=== PATIENT | male | born 1960 | race Caucasian/White ===

== ENCOUNTER → 2020-07-05 | Outpatient (CLI) | payer OTHER ==
--- NOTE | 2020-07-05 15:56 | XR ---
EXAMINATION TYPE: XR femur LT DATE OF EXAM: 07/05/2020 COMPARISON: None HISTORY: Left hip pain TECHNIQUE: 2 view left femur FINDINGS: There is destruction of the femoral head. Some acetabular erosion is present. No acute fractures identified. Knee joint space as visualized is unremarkable. No joint effusion is e vident IMPRESSION: 1. Destruction and flattening of the superior left femoral head.
--- NOTE | 2020-07-05 15:57 | XR ---
EXAMINATION TYPE: XR Hip Complete LT DATE OF EXAM: 07/05/2020 COMPARISON: Left femur HISTORY: Difficulty walking, left hip pain TECHNIQUE: 2 view left hip FINDINGS: No acute fractures are evident. There is deformity and loss of the superior left femoral head. There is loss of joint space with scle rosis along the acetabulum. Some acetabular reconstruction is evident. Acetabular spurring is present . IMPRESSION: 1. Advanced degenerative changes left hip
--- NOTE | 2020-07-05 17:10 | XR ---
EXAMINATION TYPE: XR lumbosacral spine min 4V DATE OF EXAM: 07/05/2020 COMPARISON: None HISTORY: Left hip pain TECHNIQUE: 5 view lumbar spine FINDINGS: Scoliosis is present with the convexity to the right. This is centered at approximately L1. There 5 lumbar-type vertebral bodies. The pedicles as visualized appear intact. Spondylosis is presen t. T12 ribs are rudimentary. Facet degenerative changes are present. No spondylolytic defects are marek dent. Vacuum disc phenomenon is present L2-3. There is narrowing of the L3-4 and L1-2 disc heights. T here is a grade 1 spondylolisthesis of L4 anterior on L5. IMPRESSION: 1. 1 spondylolisthesis of L4 anterior to L5. 2. Degenerative disc changes L3-4 and L1-2 3. Facet degenerative changes. 4. Scoliosis
== END | disposition home or self-care (01) ==
LOC: RADXRMAIN 07:35
PROVIDERS: ATTEND Family Medicine
DX: M43.16 Spondylolisthesis, lumbar region (principal); M41.9 Scoliosis, unspecified; M47.896 Other spondylosis, lumbar region; M16.12 Unilateral primary osteoarthritis, left hip; M87.852 Other osteonecrosis, left femur
CPT/HCPCS: 72110; 73502

== ENCOUNTER → 2020-09-16 | Outpatient (CLI) | payer OTHER | END | disposition home or self-care (01) | LOC: LABWHC1 13:20 | PROVIDERS: ATTEND Orthopaedic Surgery | DX: Z01.818 Encounter for other preprocedural examination (principal); M16.12 Unilateral primary osteoarthritis, left hip; Z01.812 Encounter for preprocedural laboratory examination | CPT/HCPCS: 87070 ==

== ENCOUNTER 2020-09-24 06:44 | Day surgery (SDC) | payer OTHER ==
[2020-09-20 10:01] VITALS: BMI 33.9
--- NOTE | 2020-09-23 11:11 | HP ---
HISTORY AND PHYSICAL CHIEF COMPLAINT: Left hip pain. HISTORY OF PRESENT ILLNESS: The patient is a 60-year-old, unemployed male who presents with progressive left hip pain for the past 2 years. It has worsened recently. He notes groin and thigh pain, worse with weightbearing activities. He notes he is using a cane. It has progressed to the point where he is having difficult time getting around. He has tried multiple medications for this. PAST MEDICAL HISTORY: Significant for arthritis. PAST SURGICAL HISTORY: Significant for previous shoulder arthroscopy, tonsillectomy, and ear surgery. CURRENT MEDICATIONS: None. He has allergies to AMOXICILLIN. FAMILY HISTORY: Significant for cancer. SOCIAL HISTORY: Negative for current tobacco or alcohol use. 16 POINT REVIEW OF SYSTEMS: Otherwise reviewed and is noncontributory. PHYSICAL EXAMINATION: On examination, the patient is approximately 6 foot tall, 245 pounds of endomorphic habitus. HEENT: Exam is nonfocal. NECK: Supple. Passive motion of left hip, flexion 55 degrees, external rotation with hip flex 60 degrees, internal rotation -10 degrees with pain. He has 2 cm of shortening of the left lower extremity compared to the right. He does have an antalgic gait pattern. His distal neurovascular appears intact in the left lower extremity. AP and lateral views of the left hip obtained in the office show severe osteoarthrosis with [id number] changes. There is flattening and deformity of the femoral head. IMPRESSION: 1. Left hip severe osteoarthrosis. 2. 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 RECOMMENDATION: I talked to the patient at length regarding his condition and treatment options. At this point, he is quite limited because of pain related to his osteoarthrosis despite conservative measures with medications and activity modifications and use of a cane. After thorough discussion, he opts to proceed with surgery. We will plan to proceed with left total hip arthroplasty utilizing a direct anterior approach. Risks and benefits were discussed at length in layman's terms. We will institute DVT prophylaxis postoperatively. MMODL / IJN: [id number] /
[~2020-09-24 06:44] MED LIST: ACETAMINOPHEN TAB 500 MG TAB PO PRN; CLINDAMYCIN 900 MG in DEXTROSE 5% IN WATER 50 ML IVPB PRN; DEXAMETHASONE SOD PHOSPHATE 4 MG/ML 1 ML VIAL IV ONE; HYDROmorphone 0.5 MG/0.5 ML SYRINGE IVP PRN; LIDOCAINE 1% (10MG/ML) FOR IV START INTRADERMA PRN; MELOXICAM 7.5 MG TAB PO PRN; MIDAZOLAM 2 MG/2 ML VIAL IV PRN; ONDANSETRON 4 MG/2 ML VIAL IVP ONE; TRANEXAMIC ACID 1,000 MG in SODIUM CHLORIDE 0.9% 100 ML IVPB PRN
[2020-09-24] MEDS: LACTATED RINGERS 1,000 ML IV SCH (07:21)
[2020-09-24] MEDS ORDERED: MIDAZOLAM 2 MG/2 ML VIAL ONE (07:55)
[2020-09-24] MEDS ORDERED: HEPARIN SODIUM,PORCINE 10,000 UNIT/ML 1 ML VIAL ONE (07:55)
[2020-09-24] MEDS ORDERED: SODIUM CHLORIDE 0.9% IRRIG 1,000 ML BTL IRRIGATION ONE (07:55)
[2020-09-24] MEDS ORDERED: fentaNYL (PF) 50 MCG/ML 2 ML AMP ONE (07:55)
[2020-09-24] MEDS ORDERED: ePHEDrine SULFATE/0.9% NACL/PF 50 MG/5 ML SYRINGE IV ONE (07:55)
[2020-09-24] MEDS ORDERED: WATER FOR INJECTION, STERILE 10 ML VIAL IV ONE (07:55)
[2020-09-24] MEDS ORDERED: SODIUM CHLORIDE 0.9% 100 ML BAG ONE (07:55)
[2020-09-24] MEDS ORDERED: TRANEXAMIC ACID 1,000 MG/10 ML VIAL ONE (07:55)
[2020-09-24] MEDS ORDERED: PROPOFOL 10 MG/ML 20 ML VIAL IV ONE (07:55)
[2020-09-24] MEDS ORDERED: LACTATED RINGERS 1,000 ML IV ONE (10:15)
[2020-09-24] MEDS ORDERED: NALOXONE 0.4 MG/ML 1 ML VIAL IV PRN (10:25)
[2020-09-24] MEDS ORDERED: ONDANSETRON 4 MG/2 ML VIAL IVP PRN (10:25)
[2020-09-24] MEDS ORDERED: traMADol 50 MG TAB PO PRN (10:25)
[2020-09-24] MEDS ORDERED: HYDROmorphone 1 MG/ML 1 ML SYRINGE IVP PRN (10:25)
[2020-09-24] MEDS ORDERED: HYDROmorphone 0.5 MG/0.5 ML SYRINGE IVP PRN (10:25)
[2020-09-24] MEDS ORDERED: MAGNESIUM HYDROXIDE 2,400 MG/10 ML CUP PO PRN (10:25)
[2020-09-24] MEDS ORDERED: HYDROcodone/APAP 7.5-325MG 1 EACH TAB PO PRN (10:27)
--- NOTE | 2020-09-24 10:42 | FL ---
Fluoroscopy INDICATION: Pain FINDINGS: Fluoroscopy time: 32 seconds. Images obtained: 1. IMPRESSIONS: 1. Documentation of fluoroscopy.
--- NOTE | 2020-09-24 10:53 | P.OP ---
Date of Procedure: 09/24/20 Preoperative Diagnosis: Left hip severe osteoarthrosis Postoperative Diagnosis: Same Procedure(s) Performed: Left total hip arthroplastyanterior approachpress-fit Implants: Depuy Corail size 12 press-fit collared standard femoral stem, 36 mm +1.5 cobalt chrome femoral head, 58 mm [place] acetabular shell with neutral polyethylene liner. Anesthesia: spinal Surgeon: Luis Adam Schedule Manager #1: Alexis Lund Estimated Blood Loss (ml): 250 Pathology: other (Femoral head) Condition: stable Disposition: PACU Indications for Procedure: The patient's a 60-year-old male who presents with progressive left hip pain secondary to osteoarthrosis despite conservative measures. A discussion of the risks and benefits of operative intervention versus continued conservative measures was made with patient. He opted to proceed with surgery. Operative risks to include infection, neurovascular injury, development of blood clots, possible fracture, possible leg length discrepancy, possible instability and need for subsequent procedures was discussed. Informed consent was obtained. Operative Findings: As below Description of Procedure: The patient was brought to the operating room, and after induction of spinal anesthesia was placed supine on the Jodi table. Positioning was checked with fluoroscopy. The left hip was then prepped and draped in a normal fashion. A 12 cm incision was then made starting 2 fingerbreadths distal and 3 finger breaths posterior to the ASIS in line with the proximal femur. The skin was incised sharply. Subcutaneous tissues were divided sharply. Electrocautery was used for hemostasis. The fascia was split in line with skin incision. The interval between the sartorius and tensor fascia marybel was then bluntly developed. The posterior fascia was opened with electrocautery. The lateral circumflex vessels were identified and cauterized prior to sectioning. A retractor was placed along the superior femoral neck as well as the anterior acetabular rim. A wide capsulotomy was performed. The neck cut was then made at a 45 angle to the shaft approximately 1 1/2 cm above the level of the lesser trochanter. The head was extracted. Attention was then paid towards preparing the acetabular. Anterior and posterior retractors were placed. The remaining capsular labral tissue sharply debrided clearly defining the acetab ular margins. I began reaming with a 53 mm reamer taking care to initially medialize then reaming at 45 of abduction and 20 of anteversion. Sequential reaming is performed up to 57 mm. A trial a mm acetabular shell was inserted in the same orientation and was fully seated. There was good rim fit and stability. Positioning was checked with fluoroscopy. The final 58 mm acetabular shell was inserted again at 45 of abduction and 20 of anteversion. This was fully seated. There was good rim fit and stability. Again fluoroscopy was used to check the adequacy of placement. A neutral polyethylene liner was gently impacted. Care was taken to avoid any soft tissue interposition. Pulsatile lavage was utilized. Attention was then paid towards preparing the proximal femur. The central region was cleared of soft tissue. A canal finder was used to find the femoral canal. Sequential broaching was performed up to size 12 taking care to lateralize proximally. A calcar mill was used to fashion the medial calcar. There was good rotational stability. A standard neck along with a 36 mm +1.5 head was placed. The hip was gently reduced. Fluoroscopy was used to check the adequacy of positioning along with leg lengths. I felt both were good. The hip was gently dislocated. The trial components were removed. The final size 12 collared standard press-fit femoral stem was inserted parallel to the posterior cortex. This was fully seated and there was good rotational stability. A 36 mm +1.5 head was placed. This was gently impacted. The hip was then gently reduced. Final fluoroscopic view showed adequate placement implant along with [place] of leg length. Stability was checked with 80 of external rotation and 60 of extension of the right hip. The wound was irrigated with sterile lavage. The fascia was closed with running 0 Vicryl suture. There was minimal drainage therefore a deep drain was not placed. The second dose of IV TXA was given. The subcutaneous tissues were reapproximated interrupted 2-0 Vicryl sutures. The skin was reapproximated with 3-0 subcuticular strata fix suture. Skin tape and adhesive was applied. A sterile dressing was applied. The patient was then awoken from sedation and transferred to recovery room in good condition. Blood loss was estimated at 250 mL. He did receive 65 mL of Cell Saver. No complications were incurred. Sponge and needle counts were correct at the end of the case. Naren JACOBSON assisted during the major components is case to include exposure, bone resection, implantation, and closure.
--- NOTE | 2020-09-24 11:20 | XR ---
EXAMINATION TYPE: XR Hip Limited LT DATE OF EXAM: 09/24/2020 COMPARISON: HISTORY: Status post hip surgery TECHNIQUE: AP left hip FINDINGS: Left femoral prosthesis has been placed. Acetabular component is present. No acute fractures are evident post left hip replacement. Acetabular spurring remains present. Soft t issue postsurgical changes are noted. IMPRESSION: 1. No acute fracture post left hip replacement
[2020-09-24] MEDS: CLINDAMYCIN 900 MG in DEXTROSE 5% IN WATER 50 ML IVPB SCH ×2 (16:52)
--- NOTE | 2020-09-24 17:14 | P.CONS ---
History of Present Illness - Reason for Consult Consult date: 09/24/20 Medical management - Chief Complaint Left hip arthritis - History of Present Illness This is a 60-year-old male with past medical history noted below significant for severe osteoarthritis of the left hip that failed outpatient management. Patient was admitted to the hospital for elective total left hip arthroplasty. He is postoperative day #0. He is doing fairly well. He appeared cheerful and did not have any complaints. I was asked to see him for medical management. Review of Systems Review of system: 14 points review of systems were obtained and were negative except to what were mentioned in the HPI. Past Medical History Past Medical History: Hypertension, Osteoarthritis (OA) Additional Past Medical History / Comment(s): NEW DX OF HTN History of Any Multi-Drug Resistant Organisms: None Reported Past Surgical History: Ear Surgery, Orthopedic Surgery, Tonsillectomy Additional Past Surgical History / Comment(s): LT ROTATOR CUFF SX. POLYP REMOVED FROM RT EAR, total left hip 09-24-20. Past Anesthesia/Blood Transfusion Reactions: No Reported Reaction Past Psychological History: No Psychological Hx Reported Smoking Status: Never smoker Past Alcohol Use History: Daily Additional Past Alcohol Use History / Comment(s): PT STATES HE DRINKS 3-4 BEERS DAILY AND USES MARIJUANA DAILY. INSTRUCTED TO REFRAIN FROM USE FOR AT LEAST 24 HOURS PRIOR TO PROCEDURE Past Drug Use History: Marijuana - Past Family History Father Family Medical History: Cancer Medications and Allergies Home Medications Medication Instructions Recorded Confirmed Type lisinopriL [Zestril] 20 mg PO HS 09/20/20 09/24/20 History Allergies Allergy/AdvReac Type Severity Reaction Status Date / Time Penicillins Allergy ABD. PAIN, Verified 09/24/20 07:14 N/V, BLOATING Physical Exam Vitals: Vital Signs Temp Pulse Pulse Resp BP Pulse Ox 09/24/20 15:48 97.2 F L 102 H 16 122/86 97 09/24/20 13:45 103 H 16 139/83 99 09/24/20 13:15 97 16 128/86 99 09/24/20 12:45 94 16 132/76 99 09/24/20 12:15 97 16 132/67 99 09/24/20 11:45 81 16 135/83 99 09/24/20 11:30 76 16 118/81 95 09/24/20 11:15 78 16 128/82 100 09/24/20 11:01 82 16 104/81 100 09/24/20 10:43 97.1 F L 88 16 112/75 100 09/24/20 07:30 97.6 F 100 16 135/92 94 L Intake and Output 09/24/20 09/24/20 09/24/20 06:59 14:59 22:59 Intake Total 1556 Output Total 250 Balance 1306 Intake: IV 1556 Output: Estimated Blood Loss 250 Other: Weight 112.4 kg General: The patient is awake and alert, in no distress Eye: there is normal conjunctiva bilaterally. Neck: The neck is supple, there is no JVD. Cardiovascular: Normal S1-S2, no S3-S4, no murmurs. Respiratory: Lungs clear to auscultation bilaterally Gastrointestinal: Abdomen is soft, nontender Musculoskeletal: There is no pedal edema. Neurological:. Speech is normal. Skin: Skin is warm and dry Assessment and Plan Assessment: 1. Postoperative day #0 status post total left hip arthroplasty, postoperative care, pain management, and DVT prophylaxis per orthopedic. 2. Essential hypertension: Blood pressure within acceptable range. Resume home dose of lisinopril. Today, I reviewed his medication list. I would order CBC and BMP for the morning. Thank you very much for the consultation. We will continue to follow up closely with you.
[2020-09-24] MEDS ORDERED: lisinopriL 20 MG TAB PO SCH (21:00)
[2020-09-24] MEDS ORDERED: SENNOSIDES-DOCUSATE SODIUM 1 EACH TAB PO SCH (21:00)
[2020-09-24] MEDS: HYDROcodone/APAP 7.5-325MG 1 EACH TAB PO PRN (23:22)
[2020-09-25] MEDS: CLINDAMYCIN 900 MG in DEXTROSE 5% IN WATER 50 ML IVPB SCH ×2 (00:14)
[2020-09-25] MEDS: LACTATED RINGERS 1,000 ML IV SCH (06:28)
[2020-09-25 07:10] LABS: Basophils % (A) 0 %; Eosinophils # (A) 0.2 k/uL (0-0.7); Eosinophils % (A) 2 %; HCT 40.5 % (39.0-53.0); HGB 13.5 gm/dL (13.0-17.5); Lymphocytes # (A) 1.7 k/uL (1.0-4.8); Lymphocytes % (A) 20 %; MCH 32.5 pg (25.0-35.0); MCHC 33.4 g/dL (31.0-37.0); MCV 97.4 fL (80.0-100.0); Mean Platelet Volume 6.6; Monocytes # (A) 0.8 k/uL (0-1.0); Monocytes % (A) 10 %; Neutrophils # (A) 5.8 k/uL (1.3-7.7); Neutrophils % (A) 67 %; Platelet Count 171 k/uL (150-450); RBC 4.16 m/uL (4.30-5.90); RDW 13.1 % (11.5-15.5); WBC 8.7 k/uL (3.8-10.6)
[2020-09-25] MEDS: HYDROcodone/APAP 7.5-325MG 1 EACH TAB PO PRN (08:38)
[2020-09-25] MEDS ORDERED: ENOXAPARIN 40 MG/0.4 ML SYRINGE SQ SCH (09:00)
--- NOTE | 2020-09-25 11:14 | P.PN ---
Subjective Progress Note Date: 09/25/20 Principal diagnosis: Status post direct anterior left total hip arthroplasty Patient evaluated at bedside today, he is resting in his hospital chair. His pain is well-controlled today. He has been up ambulating with therapy with no difficulty. Currently denies any headaches, lightheadedness, chest pain or shortness of breath. Objective - Vital Signs Vital signs: Vital Signs Temp 98.4 F 09/25/20 07:10 Pulse 80 09/25/20 07:10 Resp 17 09/25/20 07:10 BP 132/84 09/25/20 07:10 Pulse Ox 98 09/25/20 07:10 Intake & Output 09/24/20 09/25/20 09/25/20 18:59 06:59 18:59 Intake Total 1556 1050 Output Total 250 Balance 1306 1050 Weight 112.4 kg Intake: IV 1556 Intake, IV Titration 450 Amount Clindamycin 900 mg In 50 Dextrose 5% in Water 50 ml @ 50 mls/hr IVPB Q8HR [facility] Rx#:[id number] Lactated Ringers 1,000 ml 400 @ 50 mls/hr IV .Q20H [facility] Rx#:[id number] Oral 300 Blood Product 300 Output: Estimated Blood Loss 250 Other: Voiding Method Toilet - Exam Left lower extremity: Incision is clean, dry, and intact. The exofin fusion tape is in good condition. There is minimal soft tissue swelling and ecchymosis surrounding the medial and lateral aspects of the incision. Calf is soft, no tenderness with palpation. Plantar flexion, dorsiflexion, EHL, FHL are intact. Sensory exam to light touch throughout the extremity is intact, dorsal pedis pulses 2+. - Labs CBC & Chem 7: 09/25/20 06:33 Labs: Abnormal Lab Results - Last 24 Hours (Table) 09/25/20 Range/Units 06:33 RBC 4.16 L (4.30-5.90) m/uL Assessment and Plan Assessment: Status post direct anterior left total hip arthroplasty Plan: Pain control, plan for discharge home on [place] 5 mg/325 mg DVT prophylaxis, aspirin 81 mg twice a day for 30 days Wound care instructions were discussed Icing and elevating techniques discuss Medical recommendations Plan for discharge home today Time with Patient: Less than 30
--- NOTE | 2020-09-25 11:17 | P.DS ---
Providers Date of admission: 09/24/2020 Expected date of discharge: 09/25/20 Attending physician: Luis Adam Consults: 09/24/20 10:25 Consult Physician Routine Consulting Provider: Albino Velasco Reason/Comments: medical management Do you want consulting provider notified?: Yes Primary care physician: Albino Velasco Hospital Course: Date of admission: 09/24/2020 Date of discharge: 09/25/2020 Admission diagnosis: Status post direct anterior left total hip arthroplasty Discharge diagnosis: Same Attending physician: Dr. Adam Surgical procedures: Direct anterior left total hip arthroplasty Brief history: Patient is a 60-year-old male with a history of progressive primary left hip osteoarthritis. At this point patient has failed conservative treatment measures and has opted to proceed with a elective direct anterior left total hip arthroplasty. Hospital course: Details of patient's surgery can be found in operative report. Patient tolerated the procedure well and was subsequently transported to orthopedic floor. Patient's orthopeidc and medical care was provided daily. Patient had daily laboratory tests performed for evaluation of overall blood counts. Patient had daily physical therapy to include strengthening range of motion as well as education with walker ambulation. Patient was treated with Lovenox for their postoperative DVT prophylaxis during their inpatient stay. Patient was noted to have a relatively uneventful postoperative course. Patient reported satisfactory pain control with oral pain medications by postoperative day 0. Patient showed satisfactory progress with physical therapy. Patient moved steadily through the program and had no difficulty meeting the goals by postoperative day 1. Given patient's otherwise satisfactory course and having met physical therapy goals, plan is to discharge patient home on postoperative day 1. Discharge condition/disposition: Patient will be discharged home in stable condition. Discharge medications: Instructions are given on resumption of patient's normal daily medications per primary care recommendation, in addition patient will be prescribed [place] 5 mg/325 mg, Colace 100 mg, aspirin 81 mg. Discharge instructions: 1. Wound care and infection precautions, keep incision dry and covered while showering, no lotions, creams, moisturizers. No soaking, tubs, pools, hottubs. Do not scrub over the incision. 2. Weight-bear as tolerated with walker / cane until follow-up. 3. Ice and elevate when necessary. Do not exceed 20 minutes per hour with ice pack. 4. Utilize compression sleeve until seen at first follow up appointment. 5. Visiting nursing care. 6. Home physical therapy. 7. Pain meds and anticoagulants per prescription. 8. Pain medication has potential to cause constipation. Increase oral fluid and fiber intake. Contact primary care provider if you have not had a bowel movement within 48 hours after discharge 9. No anti-inflammatory medication until discussed at first post operative visit, this including Motrin, Aleve, Mobic, Diclofenac. 10. Follow up in office at 2 weeks postop with Naren Lund PA-C 11. Follow up with your primary care doctor 7-10 days after discharge. 12. Contact [facility] with any questions, . Procedures: Direct anterior left total hip arthroplasty Patient Condition at Discharge: Good Plan - Discharge Summary Discharge Rx Participant: No New Discharge Prescriptions: New Aspirin [Adult Low Dose Aspirin EC] 81 mg PO BID #60 tablet. Docdharmseh [Colace] 100 mg PO DAILY #30 capsule Hydrocodone/Acetaminophen [[place] 5-325] 1 each PO Q6HR PRN #30 tab PRN Reason: Pain Continue lisinopriL [Zestril] 20 mg PO HS Discharge Medication List lisinopriL [Zestril] 20 mg PO HS 09/20/20 [History] Aspirin [Adult Low Dose Aspirin EC] 81 mg PO BID #60 tablet. 09/25/20 [Rx] Docusate [Colace] 100 mg PO DAILY #30 capsule 09/25/20 [Rx] Hydrocodone/Acetaminophen [[place] 5-325] 1 each PO Q6HR PRN #30 tab 09/25/20 [Rx] Follow up Appointment(s)/Referral(s): [facility], [NON-STAFF] - Alexis Lund PAC [PHYSICIAN ADAPTIVE PHYSICAL EDUCATION SPECIALIST] - 10/16/20 2:30 pm Albino Velasco [Primary Care Provider] - 1 Week Activity/Diet/Wound Care/Special Instructions: PLEASE MAKE APPT's FOR WEDNESDAY AFTERNOONS IF POSSIBLE. Orthopedic Discharge Instructions: 1. Wound care and infection precautions, keep incision dry and covered while showering, no lotions, creams, moisturizers. No soaking, pools, hot tubs. Do not scrub over incision. 2. Weight-bear as tolerated with walker / cane until follow-up. 3. Ice and elevate when necessary. Do not exceed 20 minutes per hour with ice pack. 4. Utilize compression sleeve until seen at first follow up appointment. 5. Pain meds and anticoagulants per prescription. 6. Pain medication has potential to cause constipation. Increase oral fluid and fiber intake. Contact primary care provider if you have not had a bowel movement within 48 hours after discharge. 7. No anti-inflammatory medication until discussed at first post operative visit, this including Motrin, Aleve, Mobic, Diclofenac. 8. Follow up in office at 2 weeks postop with Naren Lund PA-C 9. Follow up with your primary care doctor 7-10 days after discharge. 10. Contact [facility] with any questions, . Discharge Disposition: HOME WITH HOME HEALTH SERVICES
[2020-09-25 14:39] VITALS: BP 102/70; PULSE 99; RESP 18; TEMP 98.7
--- NOTE | 2020-09-25 16:53 | P.PN ---
Subjective Progress Note Date: 09/25/20 (delayed charting seen at 0945) Principal diagnosis: Left hip pain Patient is a 60-year-old male with hypertension and obesity who presented for elective left total hip arthroplasty. Patient seen and examined at bedside. He reports that pain is well controlled. No nausea, vomiting, or chest pain. He states that physical therapy well. General: Nontoxic, no distress, appears at stated age Derm: warm, dry Head: atraumatic, normocephalic, symmetric Eyes: EOMI, no lid lag, anicteric sclera Mouth: no lip lesion, mucus membranes moist Cardiovascular: S1S2 reg, no murmur, positive posterior tibial pulse bilateral, Lungs: CTA bilateral, no rhonchi, no rales , no accessory muscle use Abdominal: soft, nontender to palpation, no guarding, no appreciable organomegaly Ext: no gross muscle atrophy, no edema, no contractures Neuro: CN II-XI grossly intact, no focal neuro deficits Psych: Alert, oriented, appropriate affect Status post left total hip arthroplasty being managed by orthopedic surgery Hypertension, controlled -Resume lisinopril -Follow up with Dr. Alexander in 1-2 weeks Obesity with BMI 33.6 -Outpatient structured weight loss Medically optimized for discharge at the discretion of orthopedic surgery. Case discussed with Naren jha PA-C. Home meds addressed on medication reconciliation Objective - Vital Signs Vital signs: Vital Signs Temp 98.7 F 09/25/20 14:38 Pulse 99 09/25/20 14:38 Resp 18 09/25/20 14:38 BP 102/70 09/25/20 14:38 Pulse Ox 94 L 09/25/20 14:38 Intake & Output 09/24/20 09/25/20 09/25/20 18:59 06:59 18:59 Intake Total 1556 1050 Output Total 250 Balance 1306 1050 Weight 112.4 kg Intake: IV 1556 Intake, IV Titration 450 Amount Clindamycin 900 mg In 50 Dextrose 5% in Water 50 ml @ 50 mls/hr IVPB Q8HR [facility] Rx#:[id number] Lactated Ringers 1,000 ml 400 @ 50 mls/hr IV .Q20H [facility] Rx#:[id number] Oral 300 Blood Product 300 Output: Estimated Blood Loss 250 Other: Voiding Method Toilet - Labs CBC & Chem 7: 09/25/20 06:33 Labs: Abnormal Lab Results - Last 24 Hours (Table) 09/25/20 Range/Units 06:33 RBC 4.16 L (4.30-5.90) m/uL
== END 2020-09-25 14:55 | disposition home health service (06) ==
LOC: OR 06:44 → 4SSUR 13:57 → OR 09-25 14:55
PROVIDERS: ATTEND Orthopaedic Surgery
DX: M16.12 Unilateral primary osteoarthritis, left hip (principal); I10 Essential (primary) hypertension; E66.9 Obesity, unspecified; Z68.33 Body mass index [BMI] 33.0-33.9, adult; Z90.89 Acquired absence of other organs; Z98.890 Other specified postprocedural states; Z79.899 Other long term (current) drug therapy; Z88.0 Allergy status to penicillin; Z80.9 Family history of malignant neoplasm, unspecified
CPT/HCPCS: 97110; 97161; 97166; 86891; 85025; 88300; 73501; 27130; C1776; J2250; J1644; J1100; J2405; J1650; J3010; J2704; 36415; 86850; 86900; 86901

== ENCOUNTER → 2020-12-30 | Outpatient (CLI) | payer OTHER ==
--- NOTE | 2020-12-30 15:47 | CT ---
EXAMINATION TYPE: CT abdomen w con DATE OF EXAM: 12/30/2020 COMPARISON: None INDICATION: Umbillical henia. DLP: 1207 mGycm, Automated exposure control for dose reduction was used. CONTRAST: 100 mL of Isovue 300. Study performed with Oral Contrast TECHNIQUE: Axial images were obtained from above the diaphragm to the iliac crests in the axial plane at 5 mm thick sections. Reconstructed images are reviewed on the computer in the coronal plane. FINDINGS: Limited CT sections are obtained the lung bases. The lung bases are clear. CT ABDOMEN: There is a mesenteric fat-containing periumbilical hernia with an opening of 1.6 cm. Some mild increased markings are within the fat. Partial incarceration should be considered. No loops of bowel are involved. Liver: Small cyst may be within the medial right lobe liver measuring 0.8 cm. Spleen: Normal Pancreas: Normal Adrenal glands: The adrenal glands are normal. Gallbladder: Normal Kidneys: No masses are evident. No hydronephrosis is present. No cysts are present. No renal stone s are evident. No abnormal enhancement is evident. Aorta: Vascular calcification is within the aorta. Inferior vena cava: Normal. IMPRESSIONS: 1. Periumbilical hernia containing mesenteric fat with opening of 1.6 cm. There is some stranding pr esent. Some partial incarceration of the mesenteric fat may be present. No loops of bowel are involve d
== END | disposition home or self-care (01) ==
LOC: RADCTMAIN 13:44
PROVIDERS: ATTEND Family Medicine
DX: K42.9 Umbilical hernia without obstruction or gangrene (principal)
CPT/HCPCS: 74160; Q9967

== ENCOUNTER → 2021-01-20 | Outpatient (CLI) | payer OTHER ==
[2021-01-20 15:16] LABS: Basophils % (A) 1 %; Eosinophils # (A) 0.4 k/uL (0-0.7); Eosinophils % (A) 6 %; HCT 48.4 % (39.0-53.0); HGB 16.8 gm/dL (13.0-17.5); Lymphocytes # (A) 1.8 k/uL (1.0-4.8); Lymphocytes % (A) 26 %; MCH 32.1 pg (25.0-35.0); MCHC 34.8 g/dL (31.0-37.0); MCV 92.3 fL (80.0-100.0); Mean Platelet Volume 6.5; Monocytes # (A) 0.7 k/uL (0-1.0); Monocytes % (A) 10 %; Neutrophils # (A) 3.9 k/uL (1.3-7.7); Neutrophils % (A) 56 %; Platelet Count 188 k/uL (150-450); RBC 5.24 m/uL (4.30-5.90); WBC 7.1 k/uL (3.8-10.6)
== END | disposition home or self-care (01) ==
LOC: LABPAT 13:33
PROVIDERS: ATTEND Surgery
DX: Z01.818 Encounter for other preprocedural examination (principal); K42.0 Umbilical hernia with obstruction, without gangrene; K43.2 Incisional hernia without obstruction or gangrene; D64.9 Anemia, unspecified; F17.210 Nicotine dependence, cigarettes, uncomplicated
CPT/HCPCS: 36415; 85025

== ENCOUNTER 2021-01-28 08:16 | Day surgery (SDC) | payer OTHER ==
[2021-01-22 11:18] VITALS: BMI 34.5
[~2021-01-28 08:16] MED LIST changes: -CLINDAMYCIN 900 MG in DEXTROSE 5% IN WATER 50 ML IVPB PRN; +HEPARIN SODIUM,PORCINE/PF 5,000 UNIT/0.5 ML SYRINGE SQ PRN; +LACTATED RINGERS 1,000 ML IV SCH; -MELOXICAM 7.5 MG TAB PO PRN; +METOCLOPRAMIDE 5 MG/ML 2 ML VIAL IVP PRN; -MIDAZOLAM 2 MG/2 ML VIAL IV PRN; -TRANEXAMIC ACID 1,000 MG in SODIUM CHLORIDE 0.9% 100 ML IVPB PRN
[2021-01-28] MEDS ORDERED: MIDAZOLAM 2 MG/2 ML VIAL IVP ONE (09:49)
--- NOTE | 2021-01-28 10:17 | P.GSHP ---
History of Present Illness H&P Date: 01/28/21 Chief Complaint: Incarcerated umbilical hernia This is a 60-year-old male who presents today for laparoscopic robotic-assisted repair of incarcerated local hernia. Patient developed a 5 cm umbilical hernia. Past Medical History Additional Past Medical History / Comment(s): ulbilical hernia, History of Any Multi-Drug Resistant Organisms: None Reported Past Surgical History: Joint Replacement, Orthopedic Surgery, Tonsillectomy Additional Past Surgical History / Comment(s): LT ROTATOR CUFF, POLYP REMOVED FROM RT EAR, left hip replacement Past Anesthesia/Blood Transfusion Reactions: Motion Sickness Smoking Status: Never smoker - Past Family History Father Family Medical History: Cancer Medications and Allergies Home Medications Medication Instructions Recorded Confirmed Type No Known Home Medications 01/22/21 01/28/21 History Allergies Allergy/AdvReac Type Severity Reaction Status Date / Time Penicillins Allergy ABD. PAIN, Verified 01/28/21 09:00 N/V, BLOATING Surgical - Exam Vital Signs Temp Pulse Resp BP Pulse Ox 97.4 F L 91 18 155/95 97 01/28/21 08:58 01/28/21 08:58 01/28/21 08:58 01/28/21 08:58 01/28/21 08:58 - General well developed, well nourished, no distress - Eyes PERRL - ENT normal pinna - Neck no masses - Respiratory normal expansion - Cardiovascular Rhythm: regular - Abdomen Abdomen: soft, non tender Assessment and Plan Assessment: Incarcerated umbilical hernia. We'll perform laparoscopic robotic-assisted repair.
[2021-01-28] MEDS ORDERED: MIDAZOLAM 2 MG/2 ML VIAL ONE (10:18)
[2021-01-28] MEDS ORDERED: fentaNYL (PF) 50 MCG/ML 2 ML AMP ONE (10:18)
[2021-01-28] MEDS ORDERED: PROPOFOL 10 MG/ML 20 ML VIAL IV ONE (10:18)
[2021-01-28] MEDS ORDERED: NEOSTIGMINE 1 MG/ML 10 ML VIAL ONE (10:18)
[2021-01-28] MEDS ORDERED: GLYCOPYRROLATE 0.2 MG/ML 2 ML VIAL ONE (10:18)
[2021-01-28] MEDS ORDERED: SUCCINYLCHOLINE CHLORIDE VIAL 200 MG/10 ML VIAL IV ONE (10:18)
[2021-01-28] MEDS ORDERED: LIDOCAINE 1% INJ 10MG/ML (20 ML MDV) ONE (10:18)
[2021-01-28] MEDS ORDERED: KETAMINE 10 MG/ML 20 ML VIAL ONE (10:18)
[2021-01-28] MEDS ORDERED: ROPIVACAINE 5 MG/ML 30 ML VIAL ONE (10:18)
[2021-01-28] MEDS ORDERED: ROCURONIUM 10 MG/ML (5 ML VIAL) IV ONE (10:18)
[2021-01-28] MEDS ORDERED: LIDOCAINE 1%-EPI 1:100,000 20 ML VIAL SQ ONE (10:43)
[2021-01-28] MEDS ORDERED: LACTATED RINGERS 1,000 ML IV ONE (11:10)
--- NOTE | 2021-01-28 11:29 | P.OP ---
Date of Procedure: 01/28/21 Preoperative Diagnosis: Incarcerated umbilical hernia Postoperative Diagnosis: Incarcerated umbilical hernia Procedure(s) Performed: Laparoscopic robotic-assisted repair of incarcerated umbilical hernia Partial omentectomy Anesthesia: CYNTHIA Surgeon: Reji Brown Pathology: other (Omentum) Condition: stable Disposition: PACU Description of Procedure: The patient was placed on the operating table in the supine position. He received general anesthesia. His abdomen was prepped and draped usual fashion. Using a 5 mm optical trocar under direct visualization the peritoneal cavity was entered in the left upper quadrant. The abdomen was then insufflated. The laparoscope was placed back into the perineal cavity. Next a 8 mm robotic trocar was placed in the left lower quadrant and a 12 mm robotic trocar was placed in the left lateral position. The original 5 mm trocar was exchanged for a 8 mm robotic trocar. The patient's placed in the left side up position. And the patient was undocked the robot. The umbilical hernia was visualized. Using hook cautery the peritoneum over the umbilical hernia was excised. The incarcerated omentum and hernia sac was sent to pathology. The fascial opening was repaired using 0V LOC suture. Next a piece of 11 cm round ventral light ST mesh was placed into the. Cavity and secured with 2 OV lock suture. The patient was undocked the robot. The needles were retrieved. The fascia of the 12 mm trocar site was closed with 0 Ethibond suture. Skin was closed interrupted 3-0 Monocryl suture. Dermabond dressings was applied. Patient top procedure well and was sent to recovery room stable condition.
[2021-01-28 11:42] VITALS: TEMP 97.6
[2021-01-28 11:47] VITALS: RESP 16
--- NOTE | 2021-01-28 12:58 | P.ANPRN ---
Procedure Note - Anesthesia - Nerve Block Performed Bilateral Rectus Abdominis Single Time Out Performed: Yes Date of Procedure: 01/28/21 Procedure Start Time: 09:49 Procedure Stop Time: 09:57 Location of Patient: PreOp Indication: Acute Post-Operative Pain, Requested by Surgeon Sedation Type: Sedate with meaningful contact maintained Preparation: Sterile Prep Position: Supine Needle Types: Pajunk Needle Gauge: 21 Ultrasound used to visualize needle placement: Yes Ultrasound used to observe medication spread: Yes Blood Aspirated: No Pain Paresthesia on Injection Noted: No Resistance on Injection: Normal Image Stored and Saved: Yes Events: Uneventful and Well Tolerated (ropi .5% 30cc bilaterally)
[2021-01-28 13:34] VITALS: BP 128/80; PULSE 81
== END 2021-01-28 13:37 | disposition home or self-care (01) ==
LOC: OR 08:16
PROVIDERS: ATTEND Surgery
DX: K42.0 Umbilical hernia with obstruction, without gangrene (principal); I10 Essential (primary) hypertension; Z88.0 Allergy status to penicillin; Z80.9 Family history of malignant neoplasm, unspecified
CPT/HCPCS: 49653; S2900; 64488; 88302

== ENCOUNTER → 2021-08-12 | Outpatient (CLI) | payer OTHER | END | disposition home or self-care (01) | LOC: LABPAT 08:43 | PROVIDERS: ATTEND Orthopaedic Surgery | DX: Z01.812 Encounter for preprocedural laboratory examination (principal); M17.11 Unilateral primary osteoarthritis, right knee; Z22.322 Carrier or suspected carrier of Methicillin resistant Staphylococcus aureus | CPT/HCPCS: 87070 ==

== ENCOUNTER 2021-09-02 10:58 | Day surgery (SDC) | payer OTHER ==
[2021-09-01 08:38] VITALS: BMI 35.2
--- NOTE | 2021-09-01 09:07 | HP ---
HISTORY AND PHYSICAL CHIEF COMPLAINT: Right knee pain. HISTORY OF PRESENT ILLNESS: Patient is a 61-year-old retired male who presents with progressive right knee pain for the past several years, worsening recently. He is having medial pain along with stiffness and soreness. He has a difficult time with weightbearing activities. He has tried medications in addition to an injection, with only partial temporary relief. PAST MEDICAL HISTORY: Significant for arthritis. PAST SURGICAL HISTORY: Significant for tonsillectomy, shoulder arthroscopy, left total hip arthroplasty in addition to previous ear surgery. CURRENT MEDICATIONS: None. ALLERGIES: AMOXICILLIN. FAMILY HISTORY: Significant for cancer. SOCIAL HISTORY: Negative for current tobacco or alcohol use. REVIEW OF SYSTEMS: Sixteen-point review of systems otherwise reviewed and is noncontributory. PHYSICAL EXAMINATION: On examination, the patient is approximately 6 feet tall, 255 pounds of endomorphic habitus. HEENT exam is nonfocal. Neck is supple. He has painless passive motion of the right hip. Straight-leg raise is negative. Active motion of right knee minus 12 to 105 degrees of flexion. He has a moderate effusion. He is tender about the medial joint line. Collaterals are stable, Korin is negative, Kelton's is equivocal. He has genu varum alignment. His distal neurovascular exam appears intact in the right lower extremity. Weightbearing notch, lateral and Merchant views of the right knee obtained in the office show severe medial compartment narrowing with [id number] changes and subchondral sclerosis. Significant degenerative changes of all patellofemoral articulation are also noted. IMPRESSION: Right knee severe medial and patellofemoral compartment osteoarthrosis. RECOMMENDATIONS: I talked to the patient at length regarding his condition along with treatment options. At this point he has tried conservative measures, with persistence/worsening of his symptoms. After thorough discussion, he opts to proceed with surgery. We will plan to proceed to right total knee arthroplasty. We will institute DVT prophylaxis postoperatively. Risks and benefits were discussed at length in layman's terms. MMODL / IJN: [id number] /
[~2021-09-02 10:58] MED LIST changes: -DEXAMETHASONE SOD PHOSPHATE 4 MG/ML 1 ML VIAL IV ONE; -HEPARIN SODIUM,PORCINE/PF 5,000 UNIT/0.5 ML SYRINGE SQ PRN; -LACTATED RINGERS 1,000 ML IV SCH; +MELOXICAM 7.5 MG TAB PO PRN; -METOCLOPRAMIDE 5 MG/ML 2 ML VIAL IVP PRN; +TRANEXAMIC ACID 1,000 MG in SODIUM CHLORIDE 0.9% 100 ML IVPB PRN
[2021-09-02] MEDS ORDERED: LACTATED RINGERS 1,000 ML IV ONE ×3 (11:40→15:23)
[2021-09-02] MEDS ORDERED: ONDANSETRON 4 MG/2 ML VIAL IVP ONE (11:50)
[2021-09-02] MEDS ORDERED: DEXAMETHASONE SOD PHOSPHATE 4 MG/ML 1 ML VIAL IVP ONE (11:50)
[2021-09-02] MEDS ORDERED: MIDAZOLAM 2 MG/2 ML VIAL IVP ONE (12:00)
--- NOTE | 2021-09-02 12:54 | P.ANPRN ---
Procedure Note - Anesthesia - Nerve Block Performed Right Adductor Canal Infusion Time Out Performed: Yes (115) Date of Procedure: 09/02/21 Procedure Start Time: 12:00 Procedure Stop Time: 12:05 Location of Patient: PreOp Indication: Acute Post-Operative Pain, Requested by Surgeon Specifically requested for management of pain by DrLinda: Luis Adam Sedation Type: Sedate with meaningful contact maintained Preparation: Sterile Prep, Sterile Dressing Position: Supine Catheter Depth at Skin (cm): 7 Catheter: Indwelling Needle Types: Pajunk Needle Gauge: 21 Ultrasound used to visualize needle placement: Yes Ultrasound used to observe medication spread: Yes Injectate: 0.5% Ropivacaine (see comment for volume) (20cc) Blood Aspirated: No Pain Paresthesia on Injection Noted: No Resistance on Injection: Normal Image Stored and Saved: Yes Events: Uneventful and Well Tolerated Right iPack Single Time Out Performed: Yes (1159) Date of Procedure: 09/02/21 Procedure Start Time: 12:06 Procedure Stop Time: 12:09 Location of Patient: PreOp Indication: Acute Post-Operative Pain, Requested by Surgeon Specifically requested for management of pain by Dr.: Luis Adam Sedation Type: Sedate with meaningful contact maintained Preparation: Sterile Prep Position: Supine Catheter: None Needle Types: Pajunk Needle Gauge: 21 Ultrasound used to visualize needle placement: Yes Ultrasound used to observe medication spread: Yes Injectate: 0.5% Ropivacaine (see comment for volume) (20cc) Blood Aspirated: No Pain Paresthesia on Injection Noted: No Resistance on Injection: Normal Image Stored and Saved: Yes Events: Uneventful and Well Tolerated
[2021-09-02] MEDS ORDERED: MAGNESIUM HYDROXIDE 2,400 MG/10 ML CUP PO PRN (13:17)
[2021-09-02] MEDS ORDERED: ONDANSETRON 4 MG/2 ML VIAL IVP PRN (13:17)
[2021-09-02] MEDS ORDERED: NALOXONE 0.4 MG/ML 1 ML VIAL IV PRN (13:17)
[2021-09-02] MEDS ORDERED: HYDROmorphone 0.5 MG/0.5 ML SYRINGE IVP PRN (13:17)
[2021-09-02] MEDS ORDERED: traMADol 50 MG TAB PO PRN (13:17)
[2021-09-02] MEDS ORDERED: HYDROmorphone 1 MG/ML 1 ML SYRINGE IVP PRN (13:17)
[2021-09-02] MEDS ORDERED: diphenhydrAMINE 50 MG/ML 1 ML VIAL ONE (13:19)
[2021-09-02] MEDS ORDERED: TRANEXAMIC ACID 1,000 MG/10 ML VIAL ONE (13:19)
[2021-09-02] MEDS ORDERED: PHENYLEPHRINE-0.9% NACL SYG 1,000 MCG/10 ML SYRINGE ONE (13:19)
[2021-09-02] MEDS ORDERED: PROPOFOL 10 MG/ML 20 ML VIAL IV ONE (13:19)
[2021-09-02] MEDS ORDERED: fentaNYL (PF) 50 MCG/ML 2 ML AMP ONE (13:19)
[2021-09-02] MEDS ORDERED: SODIUM CHLORIDE 0.9% 250 ML BAG ONE (13:19)
[2021-09-02] MEDS ORDERED: ePHEDrine 50 MG/ML 1 ML AMP ONE (13:19)
[2021-09-02] MEDS ORDERED: MIDAZOLAM 2 MG/2 ML VIAL ONE (13:19)
[2021-09-02] MEDS ORDERED: ROPIVACAINE 5 MG/ML 30 ML VIAL ONE (13:19)
[2021-09-02] MEDS ORDERED: HYDROcodone/APAP 7.5-325MG 1 EACH TAB PO PRN (13:20)
[2021-09-02] MEDS ORDERED: ceFAZolin 1,000 MG in SODIUM CHLORIDE 0.9% 1,000 ML IRRIGATION ONE (13:54)
--- NOTE | 2021-09-02 15:38 | P.OP ---
Date of Procedure: 09/02/21 Preoperative Diagnosis: Right knee severe tricompartmental osteoarthrosis Postoperative Diagnosis: Same Procedure(s) Performed: Right total knee arthroplastycementedposterior stabilized Implants: Depuy Attune size 8 cemented femoral component, size 7 cemented tibial component, 13 mm articular surface, 41 mm cemented patellar component. Anesthesia: regional, spinal Surgeon: Luis Adam Corporate Communications Specialist #1: Alexis Lund Assistant #2: Yasmany Shah Estimated Blood Loss (ml): 50 Pathology: other (Bone fragments) Condition: stable Disposition: PACU Indications for Procedure: The patient's a 61-year-old male who presents progressive right knee pain secondary to osteoarthrosis despite previous conservative measures. A discussion of the risks and benefits of operative intervention versus continued conservative measures with patient. He opted to proceed with surgery. Operative risks to include infection, neurovascular injury, fracture, development of blood clots, component loosening/failure need for subsequent procedures was discussed. Informed consent was obtained. Operative Findings: As below Description of Procedure: The patient was brought to the operating room, and after induction of spinal anesthesia the right lower extremity was prepped and draped in a normal fashion. The tourniquet was inflated to 270 mm marker. A longitudinal incision extending 3 finger breaths above the superior pole of patella extending to the medial aspect the tibial tubercle was then made. The skin and subcutaneous tissues were divided sharply. Electrocautery was used for hemostasis. A medial parapatellar arthrotomy was performed. The medial soft tissues to include the superficial and deep portions of the medial collateral ligament were elevated subperiosteally. The patella was everted. A portion of the retropatellar fat pad was excised sharply. The anterior cruciate ligament was sacrificed. Blunt retractors were placed. A starting hole was made in the distal femur 1 cm anterior to the posterior cruciate ligament origin. An intramedullary femoral guide was then inserted planning on 5 valgus distal cut with 9 mm distal res ection. The cutting block was pinned in place. The distal cut was then made. The posterior referencing sizing guide was utilized. I felt size 8 was most appropriate. 3 of external rotation was built into the system and verified off the trans-epicondylar axis and the posterior condyles. The cutting block was pinned in place. The anterior, posterior, and chamfer cuts then made. Bone fragments were removed. The intercondylar guide was placed and the notch cut was made with a sagittal saw. The bone block was removed in one fragment. The trial component was then placed. There is good anterior to posterior and medial to lateral fit. The distal peg holes were drilled. The trial component was removed. Attention was then paid towards preparing the proximal femur. An extra medullary guide was utilized in line with the tibial shaft and second metatarsal distally. I planned on 2 mm resection from the medial compartment. The cutting block was pinned in place. The proximal tibial cut was then made. The bone was removed in one fragment. The remnants of the medial and lateral menisci were excised at the capsular junction with electrocautery. The tibia sized most appropriately at size 7. The trial femoral and tibial components were placed along with a 13 mm articular surface. I was able to obtain full flexion and extension with internal and external rotation. After several flexion and extension cycles, the tibial rotation was marked with electrocautery line with the medial one third of the tibial tubercle. Attention was then paid towards preparing the patella. A patella reamer was utilized taking stem to 14 mm of bone stock. A good flush cut was made. The patella sized most appropriately 41 mm. The peg holes were drilled. The trial components placed. I had good patellofemoral tracking with no hands technique. The trial components were then removed. The tibia was prepared in the appropriate rotation with appropriate drill and keel punch. The posterior osteophytes were removed with a curved osteotome. The flexion and extension gaps were checked and felt to be symmetric at 13 mm. A trial components were then removed. The bony surfaces were prepared with pulsatile lavage and dried. The tibial component was then cemented place was fully seated. Excess cement was removed. The femoral component cemented place and was fully seated. Excess cement was removed. The trial 13 mm articular surface was placed and the knee was put in full extension. The patella component was cemented place. After the cement had sufficiently hardened, the knee was again taken through a range of motion. Again I was able to obtain full flexion and extension with varus and valgus stress. The trial 13 mm articular surface was removed and the final one inserted. This was fully seated. Care was taken to avoid any soft tissue interposition. Pulsatile lavage was again utilized. The medial parapatellar arthrotomy was closed with #2 Ethibond suture. The tourniquet was deflated with approximately 70 minutes total tourniquet time. Final hemostasis was obtained with the cautery. There was minimal bleeding therefore a deep drain was not placed. The subcutaneous tissues were reapproximated with interrupted 2-0 Vicryl sutures. The skin was reapproximated with 3-0 subcuticular strata fix suture. Skin tape and adhesive was applied. A sterile dressing was applied. The patient was awoken from sedation and transferred to recovery room in good condition. Blood loss was estimated at 50 mL. No complications were incurred. Sponge and needle counts were correct at the end of the case. Yasmany JACOBSON assisted during the major components of this case to include exposure, bone resection, implantation, and closure.
[2021-09-02] MEDS ORDERED: ROPIVACAINE 0.2%-NS ON-Q PUMP 1,090 MG, EMPTY PAIN BALL 1 EACH MISCELLANE PRN (15:59)
--- NOTE | 2021-09-02 16:14 | XR ---
Right knee HISTORY: Status post right knee arthroplasty 2 views the right knee Patient is status post right knee arthroplasty. There is anatomic alignment. Lucency is present in th e soft tissues. IMPRESSION: Orthopedic follow-up.
[2021-09-02] MEDS: LACTATED RINGERS 1,000 ML IV SCH (18:37)
[2021-09-02] MEDS ORDERED: SENNOSIDES-DOCUSATE SODIUM 1 EACH TAB PO SCH (21:00)
--- NOTE | 2021-09-02 23:16 | P.CONS ---
History of Present Illness - Reason for Consult Consult date: 09/02/21 - History of Present Illness The patient is a 61-year-old male with a PMH of osteoarthritis and obesity who was admitted for an elective right knee total replacement. The patient was seen postoperatively on the surgical unit. He reported excellent control of his pain, at time of interview rated at 0 out of 10 at rest and 3 out of 10 with movement. He has been out of bed and has passed urine but had not had a bowel movement as of yet. He reports not taking any medications at home but denied any active complaints. He denied chest discomfort, shortness of breath, fever, chills, nausea, vomiting, abdominal pain, diarrhea. Review of systems: Pertinent positives and negatives as discussed in HPI, a complete review of systems was performed and all other systems are negative. Physical examination: General: non toxic, no distress, appears at stated age, obese Derm: no unusual rashes/lesions no unusual ecchymoses, warm, dry Head: atraumatic, normocephalic, symmetric Eyes: EOMI, no lid lag, anicteric sclera, pupils equal round reactive to light ENT: Nose and ears atraumatic, no thrush, no pharyngeal erythema Neck: No thyromegaly, no cervical lymphadenopathy, trachea midline, supple Mouth: no lip lesion, mucus membranes moist Cardiovascular: S1S2 reg, no murmur, positive posterior tibial pulse bilateral, no edema, capillary refill less than 2 seconds Lungs: CTA bilateral, no rhonchi, no rales , no accessory muscle use Abdominal: soft, nontender to palpation, no guarding, no appreciable organomegaly, normal bowel sounds Ext: no gross muscle atrophy, muscle strength 5 out of 5 in all extremities except right lower extremity postsurgical, right knee Cooper bandage in place, no contractures, Neuro: CN II-XI grossly intact, light touch intact all 4 extremities, finger to nose within normal limits, Psych: Alert, oriented, appropriate affect Assessment/plan Obesity -Advised patient on a structured weight loss program as an outpatient Status post right total knee replacement -Defer management including pain control to the surgery service We appreciate this opportunity to be involved in this patient's care. We will follow the patient with you. For any further questions, please not hesitate to contact the sound inpatient team. Past Medical History Past Medical History: Osteoarthritis (OA) Additional Past Medical History / Comment(s): kyleebilical hernia, History of Any Multi-Drug Resistant Organisms: None Reported Past Surgical History: Joint Replacement, Orthopedic Surgery, Tonsillectomy Additional Past Surgical History / Comment(s): LT ROTATOR CUFF, POLYP REMOVED FROM RT EAR, left hip replacement., umbilical hernia Past Anesthesia/Blood Transfusion Reactions: No Reported Reaction Past Psychological History: No Psychological Hx Reported Smoking Status: Never smoker Past Alcohol Use History: Daily Additional Past Alcohol Use History / Comment(s): 3-4 beers /night Past Drug Use History: Marijuana Additional Drug Use History / Comment(s): current marijuana use daily - Past Family History Father Family Medical History: Cancer Medications and Allergies Home Medications Medication Instructions Recorded Confirmed Type No Known Home Medications 09/01/21 09/01/21 History Allergies Allergy/AdvReac Type Severity Reaction Status Date / Time Penicillins Allergy ABD. PAIN, Verified 09/01/21 08:19 N/V, BLOATING Physical Exam Vitals: Vital Signs Temp Pulse Pulse Resp BP Pulse Ox 09/02/21 20:00 97.5 F L 103 H 14 135/78 96 09/02/21 17:00 79 16 146/88 99 09/02/21 16:45 78 16 148/90 98 09/02/21 16:30 77 16 139/90 100 09/02/21 16:15 66 14 142/77 100 09/02/21 16:00 78 16 143/84 100 09/02/21 15:45 74 16 121/83 100 09/02/21 15:33 97.0 F L 83 14 117/75 97 09/02/21 12:20 74 16 132/73 98 09/02/21 11:35 97.9 F 91 18 148/87 98 Intake and Output 09/02/21 09/02/21 09/03/21 14:59 22:59 06:59 Intake Total 2050 200 Output Total 50 Balance 2050 150 Intake: IV 2050 200 Output: Estimated Blood Loss 50 Other: Voiding Method Toilet Weight 119.7 kg 119.7 kg
[2021-09-03 03:39] VITALS: RESP 17
[2021-09-03] MEDS: LACTATED RINGERS 1,000 ML IV SCH (05:56)
[2021-09-03] MEDS: HYDROcodone/APAP 7.5-325MG 1 EACH TAB PO PRN ×2 (07:18→14:58)
[2021-09-03 07:34] VITALS: BP 129/80; PULSE 89; TEMP 97.8
[2021-09-03] MEDS ORDERED: RIVAROXABAN 10 MG TAB PO SCH (09:00)
[2021-09-03 09:27] LABS: Basophils # (A) 0.02 X 10*3/uL (0.00-0.10); Basophils % (A) 0.2 %; Eosinophils # (A) 0.05 X 10*3/uL (0.04-0.35); Eosinophils % (A) 0.5 %; HCT 40.3 % (39.6-50.0); HGB 12.9 g/dL (13.0-17.0); Lymphocytes # (A) 1.23 X 10*3/uL (0.90-5.00); Lymphocytes % (A) 11.5 %; MCH 31.3 pg (27.0-32.0); MCV 97.8 fL (80.0-97.0); Mean Platelet Volume 9.3 fL (9.5-12.2); Monocytes # (A) 1.43 X 10*3/uL (0.20-1.00); Monocytes % (A) 13.4 %; Neutrophils # (A) 7.89 X 10*3/uL (1.80-7.70); Platelet Count 171 X 10*3/uL (140-440); RBC 4.12 X 10*6/uL (4.40-5.60); RDW 13.3 % (11.5-14.5); WBC 10.66 X 10*3/uL (4.50-10.00)
--- NOTE | 2021-09-03 10:08 | P.DS ---
Providers Date of admission: 09/02/2021 Expected date of discharge: 09/03/21 Attending physician: Luis Adam Consults: 09/02/21 13:19 Consult Physician Routine Consulting Provider: Julián Davenport Consult Reason/Comments: Medical Management Do you want consulting provider notified?: Yes Primary care physician: Albino Velasco [place] Hospital Course: Date of admission: 09/02/2021 Date of discharge: 09/03/2021 Admission diagnosis: Right knee osteoarthritis Discharge diagnosis: Same Attending physician: Dr. Adam Surgical procedures: Right total knee arthroplasty Brief history: Patient is a 61-year-old male with a history of progressive primary right knee osteoarthritis. At this point patient has failed conservative treatment measures and has opted to proceed with a elective right total knee arthroplasty. Hospital course: Details of patient's surgery can be found in operative report. Patient tolerated the procedure well and was subsequently transported to orthopedic floor. Patient's orthopeidc and medical care was provided daily. Patient had daily laboratory tests performed for evaluation of overall blood counts. Patient had daily physical therapy to include strengthening range of motion as well as education with walker ambulation. Patient was treated with Xarelto for their postoperative DVT prophylaxis during their inpatient stay. Patient was noted to have a relatively uneventful postoperative course. Patient reported satisfactory pain control with oral pain medications by postoperative day 1. Patient showed satisfactory progress with physical therapy. Patient moved steadily through the program and had no difficulty meeting the goals by postoperative day 1. Given patient's otherwise satisfactory course and having met physical therapy goals, plan is to discharge patient home on postoperative day 1. Discharge condition/disposition: Patient will be discharged home in stable condition. Discharge medications: Instructions are given on resumption of patient's normal daily medications per primary care recommendation, in addition patient will be prescribed Mission 7.5 mg/325 mg; Colace; aspirin 81 mg twice a day 30 days. Patient has aspirin at home that he will use. Discharge instructions: 1. Wound care and infection precautions, keep incision dry and covered while showering, no lotions, creams, moisturizers. No soaking, tubs, pools, hottubs. Do not scrub over the incision. 2. Weight-bear as tolerated with walker / cane until follow-up. 3. Ice and elevate when necessary. Do not exceed 20 minutes per hour with ice pack. 4. Utilize compression sleeve until seen at first follow up appointment. 5. Visiting nursing care. 6. Home physical therapy including home CPM. 7. Pain meds and anticoagulants per prescription. 8. Pain medication has potential to cause constipation. Increase oral fluid and fiber intake. Contact primary care provider if you have not had a bowel movement within 48 hours after discharge 9. No anti-inflammatory medication until discussed at first post operative visit, this including Motrin, Aleve, Mobic, Diclofenac, Aspirin. 10. Follow up in office at 2 weeks postop with Naren Lund PA-C / Yasmany Shah PA-C 11. Follow up with your primary care doctor 7-10 days after discharge. 12. Contact [facility] with any questions, . Keep must tape on until follow-up appointment in 2 weeks in office. While showering, cover mesh tape with Saran wrap. Keep incision clean, dry. Discharge medications: Mission 7.5 mg/325 mg; Colace; aspirin 81 mg twice a day 30 days. Patient has aspirin at home that he will use. Assessment: Right knee osteoarthritis Procedures: Right total knee arthroplasty Patient Condition at Discharge: Good Plan - Discharge Summary Discharge Rx Participant: Yes New Discharge Prescriptions: No Action No Known Home Medications Discharge Medication List No Known Home Medications 09/01/21 [History] Follow up Appointment(s)/Referral(s): Yasmany Shah PAC [PHYSICIAN HYDRAULIC ROCK DRILL OPERATOR] - 09/18/21 1:50 pm Albino Velasco [Primary Care Provider] - 1 Week Patient Instructions/Handouts: Knee Replacement (GEN) Activity/Diet/Wound Care/Special Instructions: Discharge instructions: 1. Wound care and infection precautions, keep incision dry and covered while showering, no lotions, creams, moisturizers. No soaking, tubs, pools, hottubs. Do not scrub over the incision. 2. Weight-bear as tolerated with walker / cane until follow-up. 3. Ice and elevate when necessary. Do not exceed 20 minutes per hour with ice pack. 4. Utilize compression sleeve until seen at first follow up appointment. 5. Visiting nursing care. 6. Home physical therapy including home CPM. 7. Pain meds and anticoagulants per prescription. 8. Pain medication has potential to cause constipation. Increase oral fluid and fiber intake. Contact primary care provider if you have not had a bowel movement within 48 hours after discharge 9. No anti-inflammatory medication until discussed at first post operative visit, this including Motrin, Aleve, Mobic, Diclofenac, Aspirin. 10. Follow up in office at 2 weeks postop with Naren Lund PA-C / Yasmany Shah PA-C 11. Follow up with your primary care doctor 7-10 days after discharge. 12. Contact [facility] with any questions, . Keep must tape on until follow-up appointment in 2 weeks in office. While showering, cover mesh tape with Saran wrap. Keep incision clean, dry. Discharge medications: Mission 7.5 mg/325 mg; Colace; aspirin 81 mg twice a day 30 days. Patient has aspirin at home that he will use. Discharge Disposition: HOME WITH HOME HEALTH SERVICES
--- NOTE | 2021-09-03 10:13 | P.PN ---
Subjective Progress Note Date: 09/03/21 Principal diagnosis: Right knee osteoarthritis Patient was seen at bedside this morning resting comfortably lying semirecumbent in bed. Patient states he is in minimal amount of pain. Patient is most the pain as his knee is located the backside of his knee. He states that there is some radiation down his lower leg. Patient says the Du Pont does help control his pain. Patient says he is also been icing his knee over the night. Patient says he has not had following, however, patient says he has been passing gas. Patient says he does have a walker at home to use. Patient was up and walking with physical therapy on the hallway and ambulating well with walker. Patient d enies chest pain, fever, chest breath, nausea, vomiting, change in vision, loss of bowel/bladder control. Objective - Vital Signs Vital signs: Vital Signs Temp 97.8 F 09/03/21 07:33 Pulse 89 09/03/21 07:33 Resp 17 09/03/21 07:33 BP 129/80 09/03/21 07:33 Pulse Ox 95 09/03/21 07:33 Intake & Output 09/02/21 09/03/21 09/03/21 18:59 06:59 18:59 Intake Total 2251 340 Output Total 50 1100 410 Balance 2201 -760 -410 Weight 119.7 kg Intake: IV 2251 Intake, IV Titration 340 Amount Lactated Ringers 1,000 ml 240 @ 20 mls/hr IV .Q24H NORBERTO Rx#:[id number] ceFAZolin 2 gm In Sodium 100 Chloride 0.9% 50 ml @ 100 mls/hr IVPB Q8H NORBERTO Rx#: [id number] Output: Urine 1100 410 Estimated Blood Loss 50 Other: Voiding Method Toilet Urinal - Exam Right knee: Incision is clean, dry, and intact. The mesh tape is in good condition. There is minimal soft tissue swelling and ecchymosis surrounding the medial and lateral aspects of the incision. Calf is soft, no tenderness with palpation. Plantar flexion, dorsiflexion, EHL, FHL are intact. Sensory exam to light touch throughout the extremity is intact, dorsal pedis pulses 2+. - Labs CBC & Chem 7: 09/03/21 06:17 Labs: Abnormal Lab Results - Last 24 Hours (Table) 09/03/21 Range/Units 06:17 WBC 10.66 H (4.50-10.00) X 10*3/uL RBC 4.12 L (4.40-5.60) X 10*6/uL Hgb 12.9 L (13.0-17.0) g/dL MCV 97.8 H (80.0-97.0) fL MPV 9.3 L (9.5-12.2) fL Neutrophils # 7.89 H (1.80-7.70) X 10*3/uL Monocytes # 1.43 H (0.20-1.00) X 10*3/uL Assessment and Plan Assessment: Right knee osteoarthritis Postoperative day #1 status post right total knee arthroplasty Plan: 1. Right knee osteoarthritis - total knee arthroplasty performed yesterday, 09/02/2021. Patient stable at bedside this morning. Patient stable for discharge home today with health services 2. Appreciate medical management 3. Pain management - Du Pont 7.5 mg/325 mg 4. DVT prophylaxis - Xarelto in hospital. Going home with aspirin 81 mg twice a day for 30 days. Patient has aspirin at home that he'll take 5. GI prophylaxis - Colace 6. Encourage incentive spirometer use 7. PT/OT - weightbearing as tolerated with walker for assistance 8. Discharge planning - discharge home today with health services Time with Patient: Less than 30
--- NOTE | 2021-09-03 11:24 | P.PN ---
Progress Note - Text Progress Note Date: 09/03/21 Patient doing well. Pain earlier when OnQ was turned off, but significant relief with OnQ running @ 8 ml/hr. Participating with PT. Denies weakness. Right adductor catheter site c/d POD#1 s/p R TKA - doing well
--- NOTE | 2021-09-03 13:20 | P.PN ---
Subjective Progress Note Date: 09/03/21 Patient has no new complaints. Pain is well controlled. Objective - Vital Signs Vital signs: Vital Signs Temp 97.8 F 09/03/21 07:33 Pulse 89 09/03/21 07:33 Resp 17 09/03/21 07:33 BP 129/80 09/03/21 07:33 Pulse Ox 95 09/03/21 07:33 Intake & Output 09/02/21 09/03/21 09/03/21 18:59 06:59 18:59 Intake Total 2251 340 Output Total 50 1100 410 Balance 2201 -760 -410 Weight 119.7 kg Intake: IV 2251 Intake, IV Titration 340 Amount Lactated Ringers 1,000 ml 240 @ 20 mls/hr IV .Q24H NORBERTO Rx#:[id number] ceFAZolin 2 gm In Sodium 100 Chloride 0.9% 50 ml @ 100 mls/hr IVPB Q8H NORBERTO Rx#: [id number] Output: Urine 1100 410 Estimated Blood Loss 50 Other: Voiding Method Toilet Urinal Urinal - Exam Gen: awake, alert HEENT: normocephalic, atraumatic, good hearing acuity, moist mucous membranes Resp: good air exchange, breathing comfortably with no accessory muscle use CVS: good distal perfusion x 4, GI: soft, NTTP, ND : no SPT, no CVAT, bradford catheter not present MSK: no pitting edema, no clubbing Neuro: non-focal, moving all extremities Psych: cooperative, euthymic mood - Labs CBC & Chem 7: 09/03/21 06:17 Labs: Abnormal Lab Results - Last 24 Hours (Table) 09/03/21 Range/Units 06:17 WBC 10.66 H (4.50-10.00) X 10*3/uL RBC 4.12 L (4.40-5.60) X 10*6/uL Hgb 12.9 L (13.0-17.0) g/dL MCV 97.8 H (80.0-97.0) fL MPV 9.3 L (9.5-12.2) fL Neutrophils # 7.89 H (1.80-7.70) X 10*3/uL Monocytes # 1.43 H (0.20-1.00) X 10*3/uL Assessment and Plan Assessment: Obesity -Advised patient on a structured weight loss program as an outpatient Status post right total knee replacement -Defer management including pain control to the surgery service We appreciate this opportunity to be involved in this patient's care. We will follow the patient with you. For any further questions, please not hesitate to contact the sound inpatient team. Patient is medically cleared for discharge.
== END 2021-09-03 15:02 | disposition home health service (06) ==
LOC: OR 10:58 → 4SSUR 16:43 → OR 09-03 15:02
PROVIDERS: ATTEND Orthopaedic Surgery
DX: M17.11 Unilateral primary osteoarthritis, right knee (principal); Z88.0 Allergy status to penicillin; E78.5 Hyperlipidemia, unspecified
CPT/HCPCS: 97161; 64999; 64448; 76942; 85025; 87635; 73560; 27447; C1713 ×2; C1776; J2250; J1200; J1100; J0690 ×3; J2405; J3010; J1170; J2795 ×2; J2370; J2704; 88300

== ENCOUNTER → 2024-03-30 | Outpatient (CLI) | payer OTHER ==
[2024-03-30 14:22] LABS: Basophils # (A) 0.05 X 10*3/uL (0.00-0.10); Basophils % (A) 0.7 %; Eosinophils # (A) 0.37 X 10*3/uL (0.04-0.35); Eosinophils % (A) 5.3 %; HCT 45.9 % (39.6-50.0); HGB 15.2 g/dL (13.0-17.0); Lymphocytes # (A) 1.71 X 10*3/uL (0.90-5.00); Lymphocytes % (A) 24.4 %; MCH 31.2 pg (27.0-32.0); MCHC 33.1 g/dL (32.0-37.0); MCV 94.3 FL (80.0-97.0); Mean Platelet Volume 8.8 FL (9.5-12.2); Monocytes # (A) 0.85 X 10*3/uL (0.20-1.00); Monocytes % (A) 12.1 %; NRBC Per 100 WBC 0 X 10*3/uL (0.00-0.01); Neutrophils # (A) 3.97 X 10*3/uL (1.80-7.70); Neutrophils % (A) 56.8 %; Platelet Count 214 X 10*3/uL (140-440); RBC 4.87 X 10*6/uL (4.40-5.60); RDW 12.7 % (11.5-14.5)
[2024-03-30 14:43] LABS: Blood Urea Nitrogen 13.5 mg/dL (9.0-27.0); Calcium 9.3 mg/dL (8.7-10.3); Carbon Dioxide 23.5 mmol/L (21.6-31.8); Chloride 103 mmol/L (96-109); Glucose 105 mg/dL (70-110); Potassium 4.6 mmol/L (3.5-5.5); Sodium 138 mmol/L (135-145)
== END | disposition home or self-care (01) ==
LOC: LABPAT 10:11
PROVIDERS: ATTEND Orthopaedic Surgery
DX: Z01.818 Encounter for other preprocedural examination (principal); M16.11 Unilateral primary osteoarthritis, right hip; R94.31 Abnormal electrocardiogram [ECG] [EKG]
CPT/HCPCS: 80048; 85025; 93005

== ENCOUNTER → 2024-04-11 | Outpatient (CLI) | payer OTHER | END | disposition home or self-care (01) | LOC: LABPAT 10:46 | PROVIDERS: ATTEND Orthopaedic Surgery | DX: Z01.812 Encounter for preprocedural laboratory examination (principal); M16.11 Unilateral primary osteoarthritis, right hip; Z22.322 Carrier or suspected carrier of Methicillin resistant Staphylococcus aureus | CPT/HCPCS: 86850; 86900; 86901; 87070 ==

== ENCOUNTER 2024-04-18 08:22 | Observation (INO) | payer OTHER ==
[2024-04-12 08:43] VITALS: BMI 35.9
--- NOTE | 2024-04-17 13:56 | P.HPOR ---
History of Present Illness H&P Date: 04/17/24 Chief Complaint: Right hip pain The patient is a 63-year-old male who presents with progressive right hip pain for the past several years worsening over the past month. He is having anterior thigh and groin pain with weightbearing activities. He notes he's been limping. He tried medications without much relief. Review of Systems Per HPI Past Medical History Past Medical History: Osteoarthritis (OA) Additional Past Medical History / Comment(s): ulbilical hernia History of Any Multi-Drug Resistant Organisms: None Reported Past Surgical History: Joint Replacement, Orthopedic Surgery, Tonsillectomy Additional Past Surgical History / Comment(s): LT ROTATOR CUFF, POLYP REMOVED FROM RT EAR, left hip replacement,rt knee replacement Past Anesthesia/Blood Transfusion Reactions: No Reported Reaction, Motion Sickness Additional Past Anesthesia/Blood Transfusion Reaction / Comment(s): no hx blood transfusion Smoking Status: Never smoker - Past Family History Father Family Medical History: Cancer Medications and Allergies Home Medications Medication Instructions Recorded Confirmed Type Aspirin 325 mg PO DAILY PRN 04/12/24 04/12/24 History Allergies Allergy/AdvReac Type Severity Reaction Status Date / Time adhesive tape Allergy irritates Verified 04/12/24 08:43 and causes skin scabs Penicillins Allergy ABD. PAIN, Verified 04/12/24 08:36 N/V, BLOATING Physical Examination - Hip right Gait: antalgic Tenderness with palpation: anterior Pain with motion: internal rotation and hip flexion ROM: flexion: 70 degrees ROM: internal rotation: 0 degrees (The pain) ROM: external rotation: 60 degrees Strength: extension: 5/5 Strength: flexion: 5/5 Strength: abduction: 5/5 Strength: adduction: 5/5 Tests: impingement tests: positive Results Patient is a well-developed well-nourished male approximately 6 foot tall, 270 pounds of endomorphic habitus. HEENT exam is nonfocal, neck is supple. He is painful passive motion of the right hip. Straight leg raise is negative. His distal neurovascular appears intact in the right lower shoulder. He has approximately 1.5 centimeter shortening of the right lower extremity. - Diagnostic results Hip x-ray: image reviewed (X-rays of the right hip obtained in the office show severe osteoarthrosis with subchondral sclerosis and [id number] changes.) Assessment and Plan Assessment: Right hip severe osteoarthrosis Plan: I talked to the patient at length regarding his condition along with treatment options. At this point he is quite symptomatic having pain and mechanical symptoms related to his right hip osteoarthrosis despite previous conservative measures. After a thorough discussion he opts to proceed with surgery. We'll plan to proceed with right total hip arthroplasty utilizing an anterior approach. Risks and benefits were discussed at length in layman's terms. We will institute DVT prophylaxis postoperatively.
[~2024-04-18 08:22] MED LIST changes: -ACETAMINOPHEN TAB 500 MG TAB PO PRN; -HYDROmorphone 0.5 MG/0.5 ML SYRINGE IVP PRN; -LIDOCAINE 1% (10MG/ML) FOR IV START INTRADERMA PRN; -MELOXICAM 7.5 MG TAB PO PRN; +MIDAZOLAM 2 MG/2 ML VIAL IV PRN; -ONDANSETRON 4 MG/2 ML VIAL IVP ONE; +TRANEXAMIC 1,000 MG/100ML-NACL 1,000 MG in SALINE 1 100ML.BAG IVPB PRN; -TRANEXAMIC ACID 1,000 MG in SODIUM CHLORIDE 0.9% 100 ML IVPB PRN
[2024-04-18] MEDS: IV FLUID CONTINUATION 1,000 ML IV ONE (08:40)
[2024-04-18] MEDS: DEXAMETHASONE SOD PHOSPHATE 4 MG/ML 1 ML VIAL IV ONE (09:14)
[2024-04-18] MEDS: LACTATED RINGERS 1,000 ML IV SCH (09:14)
[2024-04-18] MEDS: ACETAMINOPHEN TAB 500 MG TAB PO PRN (09:15)
[2024-04-18] MEDS: MELOXICAM 7.5 MG TAB PO PRN (09:15)
[2024-04-18 09:33] LABS: INR 1.1 (<1.2); Prothrombin Time 11.6 sec (10.0-12.5)
[2024-04-18] MEDS: MIDAZOLAM 2 MG/2 ML VIAL IVP ONE (09:36)
[2024-04-18] MEDS: fentaNYL (PF) 50 MCG/ML 2 ML AMP IVP ONE (09:36)
[2024-04-18] MEDS ORDERED: ROPIVACAINE 5 MG/ML 30 ML VIAL ONE (10:22)
[2024-04-18] MEDS ORDERED: MIDAZOLAM 2 MG/2 ML VIAL ONE (10:22)
[2024-04-18] MEDS ORDERED: PROPOFOL 10 MG/ML 20 ML VIAL IV ONE (10:22)
[2024-04-18] MEDS ORDERED: TRANEXAMIC 1,000 MG/100ML-NACL PREMIX BAG ONE (10:22)
[2024-04-18] MEDS ORDERED: PHENYLEPHRINE-0.9% NACL SYG 1,000 MCG/10 ML SYRINGE ONE (10:22)
[2024-04-18] MEDS: ceFAZolin 3 GM in SODIUM CHLORIDE 0.9% 100 ML IVPB PRN (10:25)
[2024-04-18] MEDS: ceFAZolin 1,000 MG in SODIUM CHLORIDE 0.9% 1,000 ML IRRIGATION ONE (11:01)
[2024-04-18] MEDS: LACTATED RINGERS 1,000 ML IV ONE (11:40)
[2024-04-18] MEDS ORDERED: NALOXONE 0.4 MG/ML 1 ML VIAL IV PRN (12:27)
[2024-04-18] MEDS ORDERED: HYDROcodone/APAP 7.5-325MG 1 EACH TAB PO PRN (12:27)
[2024-04-18] MEDS ORDERED: MAGNESIUM HYDROXIDE 2,400 MG/30 ML CUP PO PRN (12:27)
[2024-04-18] MEDS ORDERED: HYDROmorphone 0.5 MG/0.5 ML SYRINGE IVP PRN ×2 (12:27)
--- NOTE | 2024-04-18 12:34 | P.ANPRN ---
Procedure Note - Anesthesia - Nerve Block Performed Right Jose Single Time Out Performed: Yes ([id number]) Date of Procedure: 04/18/24 Procedure Start Time: :36 Procedure Stop Time: :41 Location of Patient: PreOp Indication: Acute Post-Operative Pain, Requested by Surgeon Specifically requested for management of pain by DrLinda: Luis Adam Sedation Type: Sedate with meaningful contact maintained Preparation: Sterile Prep Position: Supine Catheter: None Needle Types: Pajunk Needle Gauge: 21 Ultrasound used to visualize needle placement: Yes Ultrasound used to observe medication spread: Yes Injectate: 0.5% Ropivacaine (see comment for volume) (30cc) Blood Aspirated: No Pain Paresthesia on Injection Noted: No Resistance on Injection: Normal Image Stored and Saved: Yes Events: Uneventful and Well Tolerated
--- NOTE | 2024-04-18 12:39 | FL ---
EXAMINATION TYPE: FL guidance operating room, XR Hip Limited RT Intraoperative/procedural fluoroscopi c services were provided. Total fluoroscopy time is 30 seconds with a total of 2 submitted images to PACS. Please see the operative/procedural note for further details. DAP: 2.1081 Gycm2
--- NOTE | 2024-04-18 12:47 | P.OP ---
Date of Procedure: 04/18/24 Preoperative Diagnosis: Right hip severe osteoarthrosis Postoperative Diagnosis: Same Procedure(s) Performed: Right total hip arthroplastypress-fitanterior approach Implants: Depuy Corail size 12standard press-fit collared femoral stem, 36+5 cobalt chrome femoral head, 58 mm Gackle acetabular shell with neutral polyethylene liner. Anesthesia: spinal Surgeon: Luis Adam Assistant Store Manager #1: Yasmany Shah Estimated Blood Loss (ml): 300 Pathology: none sent Condition: stable Disposition: PACU Indications for Procedure: The patient is a 63-year-old male who presents with progressive right hip pain secondary to osteoarthrosis despite conservative measures. A discussion of the risks and benefits of operative intervention versus continued conservative measures was made with the patient. He opted to proceed with surgery. Op erative risks include infection, neurovascular injury, development of blood clots, fracture, leg length discrepancy, instability, possible component loosening/failure and possible need for subsequent procedures was discussed. Informed consent was obtained. Operative Findings: As below Description of Procedure: The patient was brought to the operating room, and after induction of spinal anesthesia was placed supine on the Jodi table. Positioning was checked with fluoroscopy. The right hip was then prepped and draped in a normal fashion. A 12 cm incision was then made starting 2 fingerbreadths distal and 3 finger breaths posterior to the ASIS in line with the proximal femur. The skin was incised sharply. Subcutaneous tissues were divided sharply. Electrocautery was used for hemostasis. The fascia was split in line with skin incision. The interval between the sartorius and tensor fascia marybel was then bluntly developed. The posterior fascia was opened with electrocautery. The lateral circumflex vessels were identified and cauterized prior to sectioning. A retractor was placed along the superior femoral neck as well as the anterior acetabular rim. A wide capsulotomy was performed. The neck cut was then made at a 45 angle to the shaft approximately 1 1/2 cm above the level of the lesser trochanter. The head was extracted. Attention was then paid towards preparing the acetabular. Anterior and posterior retractors were placed. The remaining capsular labral tissue sharply debrided clearly defining the acetabula r margins. I began reaming with a 51 mm reamer taking care to initially medialize then reaming at 45 of abduction and 20 of anteversion. Sequential reaming is performed up to 57 mm. A trial 58 mm acetabular shell was inserted in the same orientation and was fully seated. There was good rim fit and stability. Positioning was checked with fluoroscopy. The final 58 mm acetabular shell was inserted again at 45 of abduction and 20 of anteversion. This was fully seated. There was good rim fit and stability. Again fluoroscopy was used to check the adequacy of placement. A neutral po lyethylene liner was gently impacted. Care was taken to avoid any soft tissue interposition. Pulsatile lavage was utilized. Attention was then paid towards preparing the proximal femur. The central region was cleared of soft tissue. A canal finder was used to find the femoral canal. Sequential broaching was performed up to size 12 taking care to lateralize proximally. A calcar mill was used to fashion the medial calcar. There was good rotational stability. A standard neck along with a 36 mm +5 head was placed. The hip was gently reduced. Fluoroscopy was used to check the adequacy of positioning along with leg lengths. I felt both were good. The hip was gently dislocated. The trial components were removed. The final size 12 collared standard press-fit femoral stem was inserted parallel to the posterior cortex. This was fully seated and there was good rotational stability. A 36 mm +5 cobalt chrome femoral head was placed. This was gently impacted. The hip was then gently reduced. Final fluoroscopic view showed adequate placement implant along with zoroastrianism of leg length. Stability was checked with 80 of external rotation and 60 of extension of the right hip. The wound was irrigated with sterile lavage. The fascia was closed with running 0 Vicryl suture. There was minimal drainage therefore a deep drain was not placed. The second dose of IV TXA was given. The subcutaneous tissues were reapproximated interrupted 2-0 Vicryl sutures. The skin was reapproximated with 3-0 subcuticular strata fix suture. Skin tape and adhesive was applied. A sterile dressing was applied. The patient was then awoken from sedation and transferred to recovery room in good condition. Blood loss was estimated at 300 mL. No complications were incurred. Sponge and needle counts were correct at the end of the case. Yasmany JACOBSON assisted during the major components is case to include exposure, bone resection, implantation, and closure.
--- NOTE | 2024-04-18 13:11 | XR ---
EXAMINATION TYPE: XR Hip Limited RT DATE OF EXAM: 04/18/2024 COMPARISON: None HISTORY: Hip replacement TECHNIQUE: AP right hip FINDINGS: No acute fractures or dislocations. Right hip prosthesis has been placed. Postsurgical soft tissue changes are present. IMPRESSION: 1. No acute fractures post right hip replacement
[2024-04-18] MEDS: HYDROmorphone 0.5 MG/0.5 ML SYRINGE IVP PRN (13:12)
[2024-04-18] MEDS: hydrALAZINE HCL 20 MG/ML 1 ML VIAL IVP STA (14:05)
[2024-04-18] MEDS: METOPROLOL TARTRATE 5 MG/5 ML VIAL IVP STA (14:22)
[2024-04-18] MEDS: ONDANSETRON 4 MG/2 ML VIAL IVP ONE (15:19)
[2024-04-18] MEDS: SCOPOLAMINE 1 MG/72 HR PATCH TRANSDERM ONE (17:16)
--- NOTE | 2024-04-18 18:55 | P.CONS ---
History of Present Illness - Reason for Consult Consult date: 04/18/24 - Chief Complaint medical management - History of Present Illness 63-year-old man with a medical history of osteoarthritis, multiple knee surgeries, presented for elective hip surgery. Patient was seen postoperatively today and has no complaints at this time. He denies any history of stroke, heart attack, hypertension, hyperlipidemia, diabetes, kidney disease, liver disease. He has no complaints at this time. Today, patient is afebrile, 172/102, heart rate 79, 97% on 2 L nasal cannula. INR is 1.1. Gen: In NAD, non-toxic HEENT: normocephalic, atraumatic, hearing acuity is intant, mucous membranes moist CVS: perfusing all extremities well, no pitting edema, Respiratory: symmetric chest expansion, no accessory muscle use, GI: soft, NTTP, ND, : no suprapubic tenderness, no CVA tenderness MSK/Derm: no rashes, cyanosis Neuro: CN II-XII intact, no motor weakness, Psych: cooperative, euthymic mood, judgment and insight is intact Assessment/plan: Hypertension: -Start patient on amlodipine 10 mg daily, lisinopril 10 mg daily -pain control per primary team Status post total hip arthroplasty -Care per primary team DVT prophylaxis per primary team Patient is full code Past Medical History Past Medical History: Osteoarthritis (OA) Additional Past Medical History / Comment(s): ulbilical hernia History of Any Multi-Drug Resistant Organisms: None Reported Past Surgical History: Joint Replacement, Orthopedic Surgery, Tonsillectomy Additional Past Surgical History / Comment(s): LT ROTATOR CUFF, POLYP REMOVED FROM RT EAR, left hip replacement,rt knee replacement Past Anesthesia/Blood Transfusion Reactions: No Reported Reaction, Motion Sickness Additional Past Anesthesia/Blood Transfusion Reaction / Comm: no hx blood transfusion Past Psychological History: No Psychological Hx Reported Smoking Status: Never smoker Past Alcohol Use History: Occasional Past Drug Use History: Marijuana Additional Drug Use History / Comment(s): current marijuana use daily - Past Family History Father Family Medical History: Cancer Medications and Allergies Home Medications Medication Instructions Recorded Confirmed Type Aspirin 325 mg PO DAILY PRN 04/12/24 04/18/24 History Allergies Allergy/AdvReac Type Severity Reaction Status Date / Time adhesive tape Allergy irritates Verified 04/18/24 08:54 and causes skin scabs Penicillins Allergy ABD. PAIN, Verified 04/18/24 08:54 N/V, BLOATING Physical Exam Osteopathic Statement: *. No significant issues noted on an osteopathic structural exam other than those noted in the History and Physical/Consult. Vitals: Vital Signs Temp Pulse Pulse Resp BP BP Pulse Ox 04/18/24 16:41 97 04/18/24 15:36 98.6 F 79 16 172/102 97 04/18/24 15:11 80 16 146/92 98 04/18/24 14:43 69 16 157/87 99 04/18/24 14:23 78 16 154/98 100 04/18/24 13:58 80 16 164/101 99 04/18/24 13:43 80 16 164/102 100 04/18/24 13:28 78 16 147/99 98 04/18/24 13:13 78 16 161/98 100 04/18/24 12:58 82 16 133/89 99 04/18/24 12:43 97.0 F L 88 18 133/89 95 04/18/24 09:45 78 16 140/83 99 04/18/24 08:52 98 F 83 16 131/81 97 Intake and Output 04/18/24 04/18/24 04/18/24 06:59 14:59 22:59 Intake Total 1601 250 Output Total 300 Balance 1301 250 Intake: IV 1601 250 Output: Estimated Blood Loss 300 Other: # Voids 1 Weight 111 kg 111 kg
[2024-04-18] MEDS ORDERED: POLYMYXIN B-TRIMETHOPRIM SULF (10,000-1) OPHTH DROPS 10 ML BTL BOTH EYES SCH (20:00)
[2024-04-18] MEDS: ONDANSETRON 4 MG/2 ML VIAL IVP PRN (20:10)
[2024-04-18] MEDS: METOCLOPRAMIDE 5 MG/ML 2 ML VIAL IVP STA (21:05)
[2024-04-18] MEDS: amLODIPine 10 MG TAB PO SCH (22:28)
[2024-04-18] MEDS: SENNOSIDES-DOCUSATE SODIUM 1 EACH TAB PO SCH (22:28)
[2024-04-19 08:48] LABS: HCT 43.2 % (39.6-50.0); HGB 14.7 g/dL (13.0-17.0); MCH 32.2 pg (27.0-32.0); MCV 94.7 FL (80.0-97.0); NRBC Per 100 WBC 0 X 10*3/uL (0.00-0.01); Platelet Count 182 X 10*3/uL (140-440); RBC 4.56 X 10*6/uL (4.40-5.60); RDW 13.1 % (11.5-14.5); WBC 14.22 X 10*3/uL (4.50-10.00)
[2024-04-19] MEDS: lisinopriL 10 MG TAB PO SCH (08:54)
[2024-04-19] MEDS: RIVAROXABAN 10 MG TAB PO SCH (09:00)
--- NOTE | 2024-04-19 09:30 | P.PN ---
Subjective Progress Note Date: 04/19/24 Patient is complaining of nausea today had a couple episodes of emesis. Was given Reglan last night with good relief for approximately 4 hours before nausea returned. He denies abdominal pain at this time. He has not passed any stools or flatus. He denies fevers, chills. Gen: In NAD, non-toxic HEENT: normocephalic, atraumatic, hearing acuity is intant, mucous membranes moist CVS: perfusing all extremities well, no pitting edema, Respiratory: symmetric chest expansion, no accessory muscle use, GI: soft, NTTP, ND, : no suprapubic tenderness, no CVA tenderness MSK/Derm: no rashes, cyanosis Neuro: CN II-XII intact, no motor weakness, Psych: cooperative, euthymic mood, judgment and insight is intact Hospital course: 63-year-old man with a medical history of osteoarthritis, multiple knee surgeries, presented for elective hip surgery. Assessment/plan: Hypertension: -Start patient on amlodipine 10 mg daily, lisinopril 10 mg daily -pain control per primary team Nausea and vomiting -Abdominal x-ray -Reglan 5 mg IV every 6 hours as needed Status post total hip arthroplasty -Care per primary team DVT prophylaxis per primary team Patient is full code Objective - Vital Signs Vital signs: Vital Signs Temp 97.7 F 04/19/24 08:00 Pulse 97 04/19/24 08:00 Resp 17 04/19/24 08:00 BP 179/99 04/19/24 08:00 Pulse Ox 95 04/19/24 08:00 FiO2 Intake & Output 04/18/24 04/19/24 04/19/24 18:59 06:59 18:59 Intake Total 1851 Output Total 300 Balance 1551 Weight 111 kg Intake: IV 1851 Output: Estimated Blood Loss 300 Other: Voiding Method Toilet # Voids 1 2 - Labs CBC & Chem 7: 04/19/24 05:36 Labs: Abnormal Lab Results - Last 24 Hours (Table) 04/19/24 Range/Units 05:36 WBC 14.22 H (4.50-10.00) X 10*3/uL MCH 32.2 H (27.0-32.0) pg MPV 9.0 L (9.5-12.2) FL
[2024-04-19] MEDS: METOCLOPRAMIDE 5 MG/ML 2 ML VIAL IVP PRN (09:42)
--- NOTE | 2024-04-19 09:59 | XR ---
EXAMINATION TYPE: XR abdomen 1V DATE OF EXAM: 04/19/2024 9:48 AM CLINICAL INDICATION:Male, 64 years old with history of nausea, vomiting; [facility] COMPARISON: None. TECHNIQUE: One radiographic view of the abdomen was obtained. FINDINGS: The bowel gas pattern is nonspecific without dilated loops of small or large bowel. . Fecal material and gas are demonstrated throughout the colon and rectum. There is no evidence for organomegaly or pneumoperitoneum. The osseous structures are intact. No ab normal calcifications are present. Bilateral hip arthroplasties appear intact. Multilevel degeneratio n changes of the spine. IMPRESSION: Nonspecific bowel gas pattern without radiographic evidence for acute process.
[2024-04-19 10:16] LABS: Basophils # (A) 0.04 X 10*3/uL (0.00-0.10); Basophils % (A) 0.3 %; Eosinophils # (A) 0.02 X 10*3/uL (0.04-0.35); Eosinophils % (A) 0.1 %; Lymphocytes # (A) 1.79 X 10*3/uL (0.90-5.00); Lymphocytes % (A) 12.6 %; Monocytes # (A) 1.66 X 10*3/uL (0.20-1.00); Monocytes % (A) 11.7 %; Neutrophils # (A) 10.63 X 10*3/uL (1.80-7.70); Neutrophils % (A) 74.7 %; RBC Morphology Normal (Normal)
--- NOTE | 2024-04-19 10:47 | P.PN ---
Subjective Progress Note Date: 04/19/24 Principal diagnosis: Status post direct anterior right total hip arthroplasty, nausea Patient evaluated today at bedside, he is up resting in his hospital chair. He has been dealing with significant nausea and vomiting since after surgery yesterday. He is trying to avoid narcotic pain medication at this time. He is ambulated well with the assistance of a walker and physical therapy. Currently denies any headaches, lightheadedness, chest pain or shortness of breath. Objective - Vital Signs Vital signs: Vital Signs Temp 97.7 F 04/19/24 08:00 Pulse 92 04/19/24 10:07 Resp 17 04/19/24 10:07 BP 155/90 04/19/24 10:07 Pulse Ox 97 04/19/24 10:07 FiO2 Intake & Output 04/18/24 04/19/24 04/19/24 18:59 06:59 18:59 Intake Total 1851 Output Total 300 Balance 1551 Weight 111 kg Intake: IV 1851 Output: Estimated Blood Loss 300 Other: Voiding Method Toilet # Voids 1 2 - Exam Right lower extremity: Incision is clean, dry, and intact. The exofin fusion tape is in good condition. There is minimal soft tissue swelling and ecchymosis surrounding the medial and lateral aspects of the incision. Calf is soft, no tenderness with palpation. Plantar flexion, dorsiflexion, EHL, FHL are intact. Sensory exam to light touch throughout the extremity is intact, dorsal pedis pulses 2+. - Labs CBC & Chem 7: 04/19/24 05:36 Labs: Abnormal Lab Results - Last 24 Hours (Table) 04/19/24 Range/Units 05:36 WBC 14.22 H (4.50-10.00) X 10*3/uL MCH 32.2 H (27.0-32.0) pg MPV 9.0 L (9.5-12.2) FL Immature Gran # 0.08 H (0.00-0.04) X 10*3/uL Neutrophils # 10.63 H (1.80-7.70) X 10*3/uL Monocytes # 1.66 H (0.20-1.00) X 10*3/uL Eosinophils # 0.02 L (0.04-0.35) X 10*3/uL Assessment and Plan Assessment: Postoperative day #1 status post direct anterior right total hip arthroplasty Postoperative nausea/vomiting Other medical comorbidities Plan: Pain control, continue with current medications. Try to avoid narcotics due to the nausea and vomiting at this time DVT prophylaxis, aspirin 325 mg daily Continue PT, weight-bear as tolerated with walker Encourage incentive spirometer Other medical specialty recommendations appreciated Discharge planning: Discussed with patient if symptoms do improve later this afternoon he is able to tolerate a diet we can consider discharge to home with home health care, will reassess Time with Patient: Less than 30
[2024-04-19] MEDS: HYDROcodone/APAP 5-325MG 1 EACH TAB PO PRN (23:24)
[2024-04-20 03:09] VITALS: PULSE 103
[2024-04-20 07:16] VITALS: RESP 17; TEMP 99
[2024-04-20] MEDS: ASPIRIN 325 MG TAB PO SCH (08:24)
[2024-04-20] MEDS: DEXAMETHASONE SOD PHOSPHATE 4 MG/ML 1 ML VIAL IVP ONE (08:24)
--- NOTE | 2024-04-20 09:14 | P.PN ---
Subjective Progress Note Date: 04/20/24 Principal diagnosis: Status post direct anterior right total hip arthroplasty, nausea Patient evaluated today at bedside, he is up resting in his hospital chair. Patient is doing a lot better today with regards to the nausea and vomiting. He has been tolerating a softer diet. Patient is eager to be discharged home today. Currently denies any headaches, lightheadedness, chest pain or shortness of breath. Objective - Vital Signs Vital signs: Vital Signs Temp 99 F 04/20/24 06:47 Pulse 103 H 04/20/24 06:47 Resp 17 04/20/24 06:47 BP 160/103 04/20/24 06:47 Pulse Ox 98 04/20/24 02:02 FiO2 Intake & Output 04/19/24 04/20/24 04/20/24 18:59 06:59 18:59 Intake Total 100 Balance 100 Intake: Oral 100 Other: Voiding Method Toilet # Voids 3 2 - Exam Right lower extremity: Incision is clean, dry, and intact. Erythema/irritation noted surrounding the Exofin tape border.. There is minimal soft tissue swelling and ecchymosis surrounding the medial and lateral aspects of the incision. Calf is soft, no tenderness with palpation. Plantar flexion, dorsiflexion, EHL, FHL are intact. Sensory exam to light touch throughout the extremity is intact, dorsal pedis pulses 2+. - Labs CBC & Chem 7: 04/19/24 05:36 Labs: Abnormal Lab Results - Last 24 Hours (Table) 04/19/24 Range/Units 05:36 Immature Gran # 0.08 H (0.00-0.04) X 10*3/uL Neutrophils # 10.63 H (1.80-7.70) X 10*3/uL Monocytes # 1.66 H (0.20-1.00) X 10*3/uL Eosinophils # 0.02 L (0.04-0.35) X 10*3/uL Assessment and Plan Assessment: Postoperative day #2 status post direct anterior right total hip arthroplasty Postoperative nausea/vomiting, improving Other medical comorbidities Plan: Pain control, plan for discharge with [place] 7.5 mg / 325 mg. Will also prescribe senna S to help prevent constipation. We discussed eating food prior to taking the pain medication to help prevent further nausea/vomiting DVT prophylaxis, aspirin 81 mg twice a day for 30 days Due to the contact dermatitis likely from the surgical glue, providing 1 dose of 4 mg IV Decadron today, will discharge with Medrol Dosepak. We discussed how to take that medication Home PT/nursing after discharge Encourage incentive spirometer Other medical specialty recommendations appreciated Discharge planning: Stable for discharge home today Time with Patient: Less than 30
--- NOTE | 2024-04-20 09:21 | P.DS ---
Providers Date of admission: 04/19/24 14:47 Expected date of discharge: 04/20/24 Attending physician: Luis Adam Consults: 04/18/24 12:27 Consult Physician Routine Consulting Provider: Julián Davenport Consult Reason/Comments: medical management s/p direct anterior right total hip arthroplasty Do you want consulting provider notified?: Yes Primary care physician: Stated None Hospital Course: Date of admission: 04/18/2024 Date of discharge: 04/20/2024 Admission diagnosis: Status post direct anterior right total hip arthroplasty Discharge diagnosis: Same Attending physician: Dr. Adam Surgical procedures: Direct anterior right total hip arthroplasty Brief history: Patient is a 64-year-old male with a history of progressive primary right hip osteoarthritis. At this point patient has failed conservative treatment measures and has opted to proceed with a elective direct anterior right total hip arthroplasty. Hospital course: Details of patient's surgery can be found in operative report. Patient tolerated the procedure well and was subsequently transported to orthopedic floor. Patient's orthopeidc and medical care was provided daily. Patient had daily laboratory tests performed for evaluation of overall blood counts. Patient had daily physical therapy to include strengthening range of motion as well as education with walker ambulation. Patient was treated with aspirin 325 mg for their postoperative DVT prophylaxis during their inpatient stay. Patient was noted to have a relatively uneventful postoperative course. Patient reported satisfactory pain control with oral pain medications by postoperative day 1. Patient showed satisfactory progress with physical therapy. Patient moved steadily through the program and had no difficulty meeting the goals by postoperative day 2. Given patient's otherwise satisfactory course and having met physical therapy goals, plan is to discharge patient home on postoperative day 2. Discharge condition/disposition: Patient will be discharged home in stable condition. Discharge medications: Instructions are given on resumption of patient's normal daily medications per primary care recommendation, in addition patient will be prescribed [place] 7.5 mg / 325 mg, senna S, aspirin 81 mg, Medrol Dosepak. Discharge instructions: 1. Wound care and infection precautions, keep incision dry and covered while sh owering, no lotions, creams, moisturizers. No soaking, tubs, pools, hottubs. Do not scrub over the incision. 2. Weight-bear as tolerated with walker / cane until follow-up. 3. Ice and elevate when necessary. Do not exceed 20 minutes per hour with ice pack. 4. Utilize compression sleeve until seen at first follow up appointment. 5. Visiting nursing care. 6. Home physical therapy. 7. Pain meds and anticoagulants per prescription. 8. Pain medication has potential to cause constipation. Increase oral fluid and fiber intake. Contact primary care provider if you have not had a bowel movement within 48 hours after discharge 9. No anti-inflammatory medication until discussed at first post operative visit, this including Motrin, Aleve, Mobic, Diclofenac. 10. Follow up in office at 2 weeks postop with Naren Lund PA-C/Yasmany Owens 11. Follow up with your primary care doctor 7-10 days after discharge. 12. Contact [facility] with any questions, . Procedures: Direct anterior right total hip arthroplasty Patient Condition at Discharge: Good Plan - Discharge Summary Discharge Rx Participant: Yes New Discharge Prescriptions: New HYDROcodone/APAP 7.5-325MG [[place] 7.5] 1 each PO Q6HR PRN #28 tab PRN Reason: Pain Aspirin [Adult Low Dose Aspirin EC] 81 mg PO BID #60 tab methylPREDNISolone Dose Pack [Medrol Dose Pack] 4 mg PO DIRECTED #1 packet Sennosides/Docusate Sodium [Senna-S 8.6-50 mg Tablet] 2 each PO DAILY PRN #30 tablet PRN Reason: Constipation Discontinued Aspirin 325 mg PO DAILY PRN PRN Reason: Pain Discharge Medication List Aspirin [Adult Low Dose Aspirin EC] 81 mg PO BID #60 tab 04/20/24 [Rx] HYDROcodone/APAP 7.5-325MG [[place] 7.5] 1 each PO Q6HR PRN #28 tab 04/20/24 [Rx] Sennosides/Docusate Sodium [Senna-S 8.6-50 mg Tablet] 2 each PO DAILY PRN #30 tablet 04/20/24 [Rx] methylPREDNISolone Dose Pack [Medrol Dose Pack] 4 mg PO DIRECTED #1 packet 04/20/24 [Rx] Follow up Appointment(s)/Referral(s): Yasmany Shah, ELIZABETH [PH[employer]] - 2 Weeks Patient Instructions/Handouts: Anterior Hip Replacement (DC), Anterior Hip Replacement (GEN) Activity/Diet/Wound Care/Special Instructions: Orthopedic Discharge Instructions: 1. Wound care and infection precautions, keep incision dry and covered while showering, no lotions, creams, moisturizers. No soaking, pools, hot tubs. Do not scrub over incision. 2. Weight-bear as tolerated with walker / cane until follow-up. 3. Ice and elevate when necessary. Do not exceed 20 minutes per hour with ice pack. 4. Utilize compression sleeve until seen at first follow up appointment. 5. Pain meds and anticoagulants per prescription. 6. Pain medication has potential to cause constipation. Increase oral fluid and fiber intake. Contact primary care provider if you have not had a bowel movement within 48 hours after discharge. 7. No anti-inflammatory medication until discussed at first post operative visit, this including Motrin, Aleve, Mobic, Diclofenac. 8. Follow up in office at 2 weeks postop with Naren Lund PA-C / Yasmany Shah PA-C 9. Follow up with your primary care doctor 7-10 days after discharge. 10. Contact [facility] with any questions, . Keep incision clean, dry, intact. While showering, cover fusion tape with Saran wrap. Keep fusion tape on until follow-up appointment in the office in 2 weeks Discharge Disposition: HOME WITH HOME HEALTH SERVICES
[2024-04-20 09:53] VITALS: BP 107/71
--- NOTE | 2024-04-20 11:03 | P.PN ---
Subjective Progress Note Date: 04/20/24 64 year old M with PMH of OA presents to [facility] for elective right total hip arthroplastypress-fitanterior approach done by Dr. Adam on 04/18. [facility] consulted for medical management. Post operative complications included nausea and vomiting that was controlled with Reglan PRN and elevated BP which improved on Amlodipine and Lisinopril. 04/20 Patient was seen and examined. He reports well controlled pain /. No issues with urination. Repeat BP after Amlodipine and Lisinopril was 107/71. Patient does not have a h/o hypertension. He has a BP cuff at home. Advised to monitor BP and follow up with PCP as he may need antihypertensive medication if his BP remains elevated. General: non toxic, no distress, appears at stated age Derm: warm, dry Head: atraumatic, normocephalic, symmetric Eyes: EOMI, no lid lag, anicteric sclera Mouth: no lip lesion, mucus membranes moist Respiratory: Breathing comfortable Cardiovascular: Good distal perfusion in all 4 extremities Ext: no gross muscle atrophy, no edema, contractured upper extremities Neuro: no focal neuro deficits Psych: Alert, oriented, appropriate affect Elevated BP without diagnosis of hypertension: BP 107/71 this morning. Will not prescribe antihypertensive medication at this time. Advised to monitor BP at home and follow up with PCP within 1-2 days for determination if he will need [facility] antihypertensive treatment. Leukocytosis likely reactive from surgery with no signs of infection Nausea and vomiting resolved Objective - Vital Signs Vital signs: Vital Signs Temp 99 F 04/20/24 06:47 Pulse 103 H 04/20/24 06:47 Resp 17 04/20/24 06:47 BP 107/71 04/20/24 09:50 Pulse Ox 98 04/20/24 02:02 FiO2 Intake & Output 04/19/24 04/20/24 04/20/24 18:59 06:59 18:59 Intake Total 100 Balance 100 Intake: Oral 100 Other: Voiding Method Toilet # Voids 3 2 - Labs CBC & Chem 7: 04/19/24 05:36
== END 2024-04-20 13:00 | disposition home health service (06) ==
LOC: OR 08:22 → 4SSUR 12:38 → OR 04-19 14:47
PROVIDERS: ADMIT Orthopaedic Surgery; ATTEND Orthopaedic Surgery
DX: M16.11 Unilateral primary osteoarthritis, right hip (principal); R11.2 Nausea with vomiting, unspecified; D72.829 Elevated white blood cell count, unspecified; Z88.0 Allergy status to penicillin; Z91.048 Other nonmedicinal substance allergy status; I10 Essential (primary) hypertension
CPT/HCPCS: 94760; 97116; 97162; 97166; 64447; 85025; 85610; 73501; 74018; 27130; G0378 ×2; C1776; J2250; J0360; J1100 ×2; J2765 ×3; J0690 ×3; J2405 ×2; J3010; J2795; J2704; J1170; J2371